=== PATIENT | male | born 1955 | race Caucasian/White ===

== ENCOUNTER 2024-01-23 11:56 | Emergency (ER) | payer MEDICARE, SELFPAY ==
[2024-01-23 12:16] VITALS: BP 141/97
[2024-01-23] MEDS: TORADOL 60 MG IM (13:46)
--- NOTE | 2024-01-23 16:07 | ED.GENMED ---
History of Present Illness
General
Chief Complaint: Musculo-Skeletal Complaint
Source: patient
Exam Limitations: none
Time Seen by Provider: 01/23/24 13:25
Travel History
Have you had any contact with someone who has COVID-19?: No
Do you have any symptoms of coronavirus? Fever > 100 degrees, chills, cough, shortness of breath, sore throat, loss of taste or smell, muscle aches, or headache?: No
History of Present Illness
History of Present Illness:
68-year-old male nontraumatic right upper thigh pain for days. No weakness. No warmth no fever no abdominal pain. Symptoms are mild but ongoing in nature. Slightly worse with weightbearing.
Past History
Past History
ED Past Medical History: Cancer (Bladder), COPD, Seizures and Other (History of diverticulitis, polyps, hydronephrosis due to bladder cancer impaired vision); Negative IDDM or NIDDM
ED Past Surgical History: Orthopedic (Right foot repair) and Other (Bladder removal with urostomy 14 years ago); Negative Appendectomy
Social History
Tobacco: Former smoker
Alcohol: None
Drug: None
Personal:
Living: with family
Employment: Other
Family History
Family History: Hypertension
Review of Systems
Review of Systems
All Other Systems: Not applicable
Constitutional: Denies fever
Phy Exam
Physical Exam
Physical Exam:
GENERAL: Alert and oriented in no apparent distress
CARDIAC: Regular rate and rhythm
LUNGS: No respiratory distress
ABDOMEN: Soft, without focal tenderness or distention urostomy
NEUROLOGICAL: Alert and oriented , grossly non-focal
SKIN: Warm and dry, chronic rash to the lower extremities and arms. There is a scabbing like rash over the area that is sore however patient states this is chronic. No unusual drainage or erythema
MUSCULOSKELETAL: No edema,no deformity.Good color. Mild tenderness over the right upper anterior thigh but without warmth erythema fluctuance. Able to bear full weight. No joint pain. No pain with joint motion
PSYCH: Normal and appropriate interaction.
Course
Orders/Labs/Results
Orders:
Orders
01/23/24 13:38
Femur, Right 2 View [CR Femur - Right Min 2 Vw] Urgent
Comment:
Reason For Exam: nontraumatic pain
US Periph Venous LOWER Ext RT Urgent
Comment:
Reason For Exam: thigh pain
01/23/24 13:39
Ketorolac [Toradol] 60 mg IM NOW STA
Vital Signs
Initial and Last Documented VS:
Initial Vital Signs
Temp Pulse Resp BP Pulse Ox
97.8 F 77 18 141/97 96
01/23/24 12:16 01/23/24 12:16 01/23/24 12:16 01/23/24 12:16 01/23/24 12:16
Last Documented Vital Signs
Temp Pulse Resp BP Pulse Ox
97.8 F 77 18 141/97 96
01/23/24 12:16 01/23/24 12:16 01/23/24 12:16 01/23/24 12:16 01/23/24 12:16
*Radiology
Radiology exam reviewed: preliminary read by ED provider (Negative x-ray) and radiology read reviewed (Negative ultrasound)
*Pulse Oximetry
Patient hypoxic: no
*Critical Care Note
Total Time (30-74mins, 75-104mins- exclusive of procedures): Not Applicable
Update Note
Update Note:
Patient is remained medically stable and nontoxic. No serious etiology found for this thigh pain. Neurologically stable. No infectious issue. Patient did state he is normally on it oxycodone but his 60 mg bottle fell out of his truck. At this
time I Tylenol. We could try a muscle relaxer. And follow-up.
ED Attending Note
-
Portions of this chart may have been created with voice recognition software.� Occasional wrong word or��sound alike� substitutions may have occurred due to the inherent limitations of voice recognition software.
Discharge Plan
Departure
Patient Disposition: Home (Routine Discharge)
Date of Disposition: 01/23/24
Time of Disposition: 16:41
Patient with high blood pressure during this ER visit?: Yes
Discharge Problem:
Right thigh pain
Instructions: Muscle and Bone Pain (DC), BLOOD PRESSURE
Prescriptions:
New
cyclobenzaprine 10 mg tablet
10 mg PO TIDPRN PRN (Reason: muscle spasm) Qty: 13 0RF
No Action
oxycodone [OxyContin] 10 MG tablet,oral only,ext.rel.12 hr
10 mg PO Q12H
oxycodone 5 MG tablet
10 mg PO Q8HPRN PRN (Reason: PAIN)
levofloxacin 500 MG tablet
500 mg PO DAILY Qty: 7 0RF
erythromycin 1 APPLIC ointment
1 applic ophthalmic (eye) QID Qty: 3 0RF
Referrals:
Levi Ross MD [Family Provider] - Follow up in 2-3 days
Activity Restrictions/Additional Instructions:
Advil or Motrin for pain
You could try the muscle relaxer also. However this could cause some drowsiness
Close follow-up with your primary physician
Return sooner with increased pain swelling redness fever numbness tingling weakness or any other concerning symptoms
Interventions
Interventions:
*Risk Screen - Suicide Last Done: 01/23/24 13:26
*General Assessment Last Done: 01/23/24 13:26
*Neglect/Abuse Screening Last Done: 01/23/24 13:26
ED- Fall Risk Assessment Last Done: 01/23/24 13:26
*ED COVID-19 Vaccine History Last Done: 01/23/24 12:16
ED-Musculoskeletal Assessment Last Done: 01/23/24 13:46
Discharge Date and Time
Print Language: GREEK
[2024-01-23 16:49] VITALS: BP 174/92
== END 2024-01-23 16:49 | disposition home or self-care (01) ==
LOC: EMR 11:56
PROVIDERS: EMERGENCY PHYSICIAN Emergency Medicine; FAMILY PHYSICIAN Internal Medicine
DX: M79.651 Pain in right thigh (principal); J44.9 Chronic obstructive pulmonary disease, unspecified; G40.909 Epilepsy, unspecified, not intractable, without status epilepticus; Z82.49 Family history of ischemic heart disease and other diseases of the circulatory system; Z85.51 Personal history of malignant neoplasm of bladder; Z87.891 Personal history of nicotine dependence; Z90.49 Acquired absence of other specified parts of digestive tract
CPT/HCPCS: 99284; 96372; 73552; 93971

== ENCOUNTER 2024-09-08 08:48 | Emergency (ER) | payer OTHER, SELFPAY ==
[2024-09-08 09:06] VITALS: BP 110/83
--- NOTE | 2024-09-08 10:28 | ED.GENMED ---
History of Present Illness
General
Chief Complaint: Cold/Flu/URI Symptoms
Source: patient
Time Seen by Provider: 09/08/24 10:16
History of Present Illness
History of Present Illness:
69-year-old male presents to the emergency room complaining of cough, body aches and feeling short of breath. Patient states he does have a history of COPD but does not use any inhalers. Symptoms began yesterday. No known fever. Patient denies
smoking though he did smoke heavily until 24 years ago. He does admit to drinking on a regular basis. No nausea vomiting or diarrhea.
Past History
Past History
ED Past Medical History: Cancer (Bladder), COPD, Seizures and Other (History of diverticulitis, polyps, hydronephrosis due to bladder cancer impaired vision); Negative IDDM or NIDDM
ED Past Surgical History: Orthopedic (Right foot repair) and Other (Bladder removal with urostomy 14 years ago); Negative Appendectomy
Social History
Tobacco: Former smoker
Alcohol: None
Drug: None
Personal:
Living: with family
Employment: Other
Family History
Family History: Hypertension
Phy Exam
Physical Exam
Physical Exam:
General: Awake, Alert, Oriented X3. No acute distress.
Vitals: unremarkable
Head: Atraumatic
Eyes: Pupils equal, EOMI
Throat: Airway intact, no exudates
Neck: Trachea midline
Lungs: Decreased breath sounds bilateral with a few expiratory wheezes
Heart: Regular rate, no murmurs
Abd: Soft, Nontender, No pulsatile mass
Neuro: Nonfocal
Skin: Warm, dry, no rash
Extremities: pulses equal b/l, no edema
Course
Orders/Labs/Results
Orders:
Orders
09/08/24 09:08
Electrocardiogram (*1) Urgent
Reason for Study: Shortness of Breath
CXR2 [CR Chest - 2 Views ] Urgent
Comment:
Reason For Exam: cough uri s/s
09/08/24 09:09
EKG- Treatment ONCE
09/08/24 10:28
Ipratropium/Albuterol Sulfate [Duoneb] 3 ml INH R NOW STA
09/08/24 11:08
COVID-19 Antigen Urgent
Source: Nasal Swab
Complete Blood Count/With Diff Urgent
Comprehensive Metabolic Panel Urgent
Troponin I Urgent
Influenza A+B Rapid Molecular Urgent
MARGARITA Source: Nasal Swab
Specimen Description:
Abnormal Lab Results
09/08/24
11:08
WBC 3.3 L 10^3/uL
(4.8-10.8)
MCH 31.2 H pg
(27.0-31.0)
Absolute Lymphs (auto) 0.3 L 10^3/uL
(1.2-3.4)
Lymphocytes % 9.3 L %
(20.5-51.1)
Monocytes % 16.6 H %
(1.7-9.3)
Creatinine 1.4 H mg/dL
(0.7-1.3)
Glucose 102 H mg/dl
(70-99)
09/08/24 11:08
09/08/24 11:08
Vital Signs
Initial and Last Documented VS:
Initial Vital Signs
Temp Pulse Resp BP Pulse Ox
99.0 F 88 16 110/83 94
09/08/24 09:06 09/08/24 09:06 09/08/24 09:06 09/08/24 09:06 09/08/24 09:06
Last Documented Vital Signs
Temp Pulse Resp BP Pulse Ox
99.0 F 84 15 124/68 94
09/08/24 09:06 09/08/24 12:15 09/08/24 12:15 09/08/24 12:00 09/08/24 12:15
MDM/Problems Addressed
Differential Diagnosis Includes:
covid, flu, pneumonia
MDM/Problems Addressed:
Patient positive for flu. I do not appreciate any significant murmurs on chest x-ray. Radiology questions and area in the right lower lobe which could be scarring or pneumonia. Given his positive flu test and only recent onset of symptoms I do
not believe he requires any antibiotics. Even if he does have an infiltrate is likely viral pneumonia. Patient will be discharged and advised to take Tylenol for fever chills etc.
*Radiology
Radiology exam reviewed: preliminary read by ED provider (Appears to be linear atelectasis right lower lung)
*Pulse Oximetry
Patient hypoxic: no
*Critical Care Note
Total Time (30-74mins, 75-104mins- exclusive of procedures): Not Applicable
ED Attending Note
-
Portions of this chart may have been created with voice recognition software.� Occasional wrong word or��sound alike� substitutions may have occurred due to the inherent limitations of voice recognition software.
Discharge Plan
Departure
Patient Disposition: Home (Routine Discharge)
Date of Disposition: 09/08/24
Time of Disposition: 12:14
Patient with high blood pressure during this ER visit?: No
Condition: Good
Discharge Problem:
Influenza A
Instructions: Flu in adults - Discharge instructions
Prescriptions:
New
albuterol sulfate 90 mcg/actuation HFA aerosol inhaler
2 puff inhalation Q4H PRN (Reason: shortness of breath or wheezing) Qty: 8.5 0RF
No Action
oxycodone [OxyContin] 10 MG tablet,oral only,ext.rel.12 hr
10 mg PO Q12H
oxycodone 5 MG tablet
10 mg PO Q8HPRN PRN (Reason: PAIN)
levofloxacin 500 MG tablet
500 mg PO DAILY Qty: 7 0RF
erythromycin 1 APPLIC ointment
1 applic ophthalmic (eye) QID Qty: 3 0RF
cyclobenzaprine 10 mg tablet
10 mg PO TIDPRN PRN (Reason: muscle spasm) Qty: 13 0RF
Referrals:
Levi Ross MD [Family Provider] -
Interventions
Interventions:
*Risk Screen - Suicide Last Done: 09/08/24 09:06
*General Assessment Last Done: 09/08/24 11:35
*Neglect/Abuse Screening Last Done: 09/08/24 09:06
ED- Fall Risk Assessment Last Done: 09/08/24 11:26
*ED COVID-19 Vaccine History Last Done: 09/08/24 11:26
*Nursing Disposition Last Done: 09/08/24 11:35
ED- Pulmonary Assessment Last Done: 09/08/24 11:26
Discharge Date and Time
Discharge Date/Time: 09/08/24 12:38
Print Language: IRISH
[2024-09-08 11:24] LABS: % Basophils 0.9 % (0-2); % Immature Granulocytes 0.3 % (0-0.5); % Lymphocytes 9.3 % (20.5-51.1); % Monocytes 16.6 % (1.7-9.3); % Neutrophils 72.9 % (42.2-75.2); Absolute Lymphocytes 0.3 10^3/uL (1.2-3.4); Absolute Monocytes 0.6 10^3/uL (0.1-0.6); Absolute Neutrophils 2.4 10^3/uL (1.4-6.5); Hematocrit 46.1 % (39.0-52.0); Hemoglobin 15.7 g/dL (13.0-18.0); Mean Corp Hgb Conc. 34.1 g/dL (33.0-37.0); Mean Corpuscular Hgb 31.2 pg (27.0-31.0); Mean Corpuscular Volume 91.7 fL (80.0-94.0); Mean Platelet Volume 10.4 fL (7.4-10.4); Nucleated Red Blood Cells % 0 % (-); Platelet Count 154 10^3/uL (130-400); Red Blood Cell Count 5.03 10^6/uL (4.70-6.10); Red Cell Dist. Width 13.2 % (11.5-14.5); White Blood Cell Count 3.3 10^3/uL (4.8-10.8)
[2024-09-08 11:26] VITALS: BMI 29.3
[2024-09-08 11:27] VITALS: BP 129/80
[2024-09-08] MEDS: DUONEB 3 ML INH (11:28)
[2024-09-08 11:39] LABS: COVID-19 Antigen Negative (Negative)
[2024-09-08 11:45] LABS: ALT (SGPT) 19 U/L (0-50); AST (SGOT) 24 U/L (17-59); Alkaline Phosphatase 93 U/L (38-126); Blood Urea Nitrogen 14 mg/dl (9-20); Calcium 8.4 mg/dl (8.4-10.2); Carbon Dioxide 25 mmol/L (22-30); Chloride 102 mmol/L (98-107); Estimated Creatinine Clearance 55 ml/min; Glucose 102 mg/dl (70-99); Potassium 4.5 mmol/L (3.5-5.1); Sodium 137 mmol/L (135-145); Total Bilirubin 0.8 mg/dl (0.2-1.3); Total Protein 7.3 g/dl (6.3-8.2); eGFR 54.75
[2024-09-08 11:54] LABS: Troponin I < 0.012 ng/ml
[2024-09-08 12:00] VITALS: BP 124/68
== END 2024-09-08 12:38 | disposition home or self-care (01) ==
LOC: EMR 08:48
PROVIDERS: Emergency Medicine; EMERGENCY PHYSICIAN Emergency Medicine; FAMILY PHYSICIAN Internal Medicine
DX: J10.1 Influenza due to other identified influenza virus with other respiratory manifestations (principal); J44.9 Chronic obstructive pulmonary disease, unspecified; Z82.49 Family history of ischemic heart disease and other diseases of the circulatory system; Z85.51 Personal history of malignant neoplasm of bladder; Z87.891 Personal history of nicotine dependence; Z90.49 Acquired absence of other specified parts of digestive tract
CPT/HCPCS: 99283; 94640; 71046; 80053; 84484; 85025; 87502; 87811; 93005

== ENCOUNTER 2025-07-11 03:53 | Inpatient (IN) | payer OTHER, SELFPAY ==
[2025-07-10 23:17] VITALS: BMI 26.9
[2025-07-10 23:18] VITALS: BP 158/95
[2025-07-10 23:41] LABS: Hematocrit 47.0 % (39.0-52.0); Hemoglobin 16.0 g/dL (13.0-18.0); Mean Corp Hgb Conc. 34.0 g/dL (33.0-37.0); Mean Corpuscular Volume 90.6 fL (80.0-94.0); Nucleated Red Blood Cells % 0 % (-); Platelet Count 197 10^3/uL (130-400); Red Cell Dist. Width 13.1 % (11.5-14.5)
[2025-07-11] VITALS (12 sets, daily range): BP systolic 107–140; BP diastolic 70–92; BMI 25.0
[2025-07-11 00:10] LABS: ALT (SGPT) 23 U/L (0-50); AST (SGOT) 20 U/L (17-59); Albumin 3.7 g/dl (3.5-5.0); Alkaline Phosphatase 101 U/L (38-126); Blood Urea Nitrogen 10 mg/dl (9-20); Calcium 8.6 mg/dl (8.4-10.2); Carbon Dioxide 24 mmol/L (22-30); Chloride 107 mmol/L (98-107); Estimated Creatinine Clearance 71 ml/min; Glucose 116 mg/dl (70-99); Lipase 147 U/L (23-300); Potassium 4.2 mmol/L (3.5-5.1); Sodium 136 mmol/L (135-145); Total Protein 7.4 g/dl (6.3-8.2); eGFR > 60.00
--- NOTE | 2025-07-11 00:31 | ED.GENMED ---
History of Present Illness
General
Chief Complaint: Abdominal Pain
Source: patient, ambulance crew and previous radiology exam (Prior CT abdomen pelvis 2018 showing urostomy right lower quadrant, chronic right-sided hydronephrosis/right hydroureter.)
Exam Limitations: none
Time Seen by Provider: 07/10/25 23:54
Nursing documentation reviewed up to this point in time: agreed with
History of Present Illness
History of Present Illness:
HISTORY OF PRESENT ILLNESS
The patient is a 69-year-old male presenting with right-sided flank pain. The pain began approximately two weeks ago, initially resolved overnight, but recurred with increased severity today around 10 PM. The patient recounts living in his car for
the past two weeks after vacating a rented room due to the previous resident�s ex-spouses planned return from [place]. He attributes part of his discomfort to sleeping conditions and a previous cough accompanied by phlegm, for which he completed a
course of azithromycin (Z-Eliecer) about three weeks ago, with subsequent resolution of the cough. The current pain is severe, radiates to the right anterolateral distal chest region and worsens with coughing and deep breaths but is not exacerbated by
palpation of the abdomen. He denies nausea and reports normal urinary function of his urostomy. The patient maintained on oxy IR 10 mg QID for chronic back pain management. Additionally, he has a history of bladder cancer requiring a urostomy 2001,
as well as history of chronic right hydronephrosis and hydroureter.
He denies leg pain or swelling. No prior history of thromboembolism.
He does have a history of COPD, maintained on LABA/ICS as well as as needed albuterol. Remote history of smoking, quit in 2001.
He arrives via EMS. Received IV fentanyl 90 mcg prehospital with moderate improvement in pain.
Past History
Past History
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
polyps, right hydronephrosis due to bladder cancer, impaired vision); Negative IDDM or NIDDM
ED Past Surgical History: Orthopedic (Right foot repair), Urological and Other (Bladder removal with urostomy 2001); Negative Appendectomy
Social History
Tobacco: Former smoker (Quit smoking 2001)
Alcohol: None
Drug: None
Personal:
Living: homeless (Had been renting a room in a house but recently forced to vacate. He is currently homeless since June 2025)
Employment: Other
Family History
Family History: Hypertension and Other (Chronic dry skin condition he inherited from his mother-Diareze disease)
Phy Exam
Physical Exam
Physical Exam:
GENERAL: 69-year-old gentleman appears his stated age. Awake and alert, pleasant, appears mildly uncomfortable, intermittently wincing in pain but otherwise easily communicative and in no acute distress. Mild to moderate hypoxia noted requiring
supplemental oxygen.
EYE: pupils equal and reactive. anicteric
NECK: Supple, nontender, no meningismus, no significant adenopathy.
ENT: oral mucosa is moist. No rhinorrhea.
CARDIAC: Regular rate and rhythm. no murmur.
LUNGS: no acute respiratory distress, moderately decreased breath sounds at bases related to poor inspiratory effort, splinting and pain with attempted deep breath. No palpable chest wall tenderness.
ABDOMEN: Soft, nondistended, without focal tenderness, no r/g, mild right CVA tenderness to percussion, normoactive BS.
NEUROLOGICAL: Alert and oriented x3, no focal neuro deficits.
SKIN: Warm and dry, normal color, generalized thickened, scaly mildly excoriated rash.
MUSCULOSKELETAL: No C/C/E. peripheral pulses are full and equal b/l. No palpable tenderness.
PSYCH: Normal and appropriate interaction.
Course
Orders/Labs/Results
Orders:
Orders
07/10/25 23:32
Complete Blood Count/With Diff Urgent
Comprehensive Metabolic Panel Urgent
Lipase Urgent
Urinalysis Reflex To Culture Urgent
Date Specimen was Collected: 07/10/25
Time Specimen was Collected: 23:30
Urine Microscopic Reflex Cult Urgent
Urine Culture Urgent
MARGARITA Source: U
Specimen Description:
Date Specimen was Collected: 07/10/25
Time Specimen was Collected: 23:30
07/11/25 00:29
Electrocardiogram (*1) Urgent
Reason for Study: Chest Pain
CT Pe/abd/pel W Urgent
Comment: wrong exam ordered changed to combined
Reason For Exam: Acute, severe R-LAT pleuritic CP
EKG- Treatment ONCE
07/11/25 00:47
Troponin I Urgent
07/11/25 01:45
Fentanyl Citrate/Pf [Sublimaze] 50 mcg IV NOW STA
07/11/25 02:06
PTT Urgent
07/11/25 02:09
Heparin 7,200 units IV NOW STA
Nursing to Place Non Medication Order As Directed
Physician Order: PTT 6 hours after initial start of Heparin infusion
07/11/25 02:15
Heparin 36505 Units/250 ml 25,000 units in 250 ml IV PER PROTOCOL
Weight to be used for heparin protocol in kilograms (kg):: 90
Protocol:: DVT/PE
PTT Goal Range to be used:: PTT 73 to 111 seconds
Order type:: Initial
INITIAL Infusion Dose (UNITS/KG/hr) & then follow protocol:: 18 units/kg/hr
Infusion Dose in UNITS/hr & then follow protocol (UNITS/hr):: 1,600
INFUSION RATE in mL/hr & then follow protocol (mL/hr):: 16
For DVT/PE algorithm, re-bolus for low PTT?: Yes
PTT less than or equal to 64 seconds:: Re-bolus 80 units/kg (max 10,000units). Increase by 400 units/hr
(+ 4mL/hr)
PTT 64.1 to 72.9 seconds:: Re-bolus 40 units/kg (max 5,000 units). Increase by 200 units/hr
(+ 2mL/hr)
PTT 73 to 111 seconds:: Target Range. No change in rate.
PTT 111.1 to 130.9 seconds:: Decrease rate by 200 units/hr (- 2 mL/hr)
PTT 131 to 199.9 seconds:: HOLD for 1 hr. Then decrease by 300 units/hr (- 3mL/hr)
PTT greater than or equal to 200 seconds:: HOLD for 2 hrs & Notify Provider. Then decrease by 400 units/hr
(- 4mL/hr)
Lab follow-up:: Each change, PTT q6h until 2 consecutive are therapeutic. Then
PTT daily.
07/11/25 02:18
Heparin 3,600 units IV PRN PRN
Heparin 7,200 units IV PRN PRN
Abnormal Lab Results
07/10/25
23:32
MPV 10.5 H fL
(7.4-10.4)
Absolute Neuts (auto) 6.9 H 10^3/uL
(1.4-6.5)
Absolute Lymphs (auto) 0.9 L 10^3/uL
(1.2-3.4)
Absolute Monos (auto) 0.7 H 10^3/uL
(0.1-0.6)
Neutrophils % 79.6 H %
(42.2-75.2)
Lymphocytes % 10.8 L %
(20.5-51.1)
Glucose 116 H mg/dl
(70-99)
Ur Occult Blood Reflex 1+ A
(Negative)
Urine Nitrite (Reflex) Positive A
(Negative)
Urine WBC (Reflex) 11-15 A /HPF
(0-5)
Urine Bacteria (Reflex) Many A
(Negative)
Urine Albumin (Reflex) 1+ A
(Neg - Trace)
07/10/25 23:32
07/10/25 23:32
Vital Signs
Initial and Last Documented VS:
Initial Vital Signs
Temp Pulse Resp BP Pulse Ox
97.9 F 106 20 158/95 91
07/10/25 23:18 07/10/25 23:18 07/10/25 23:18 07/10/25 23:18 07/10/25 23:18
Last Documented Vital Signs
Temp Pulse Resp BP Pulse Ox
97.9 F 86 15 125/83 94
07/10/25 23:18 07/11/25 01:45 07/11/25 01:45 07/11/25 01:00 07/11/25 01:45
MDM/Problems Addressed
Differential Diagnosis Includes:
DIFFERENTIAL DIAGNOSIS
The Differential Diagnosis includes, in no particular order and is not limited to:
1. Hydronephrosis
2. Kidney stones
3. Musculoskeletal pain
4. Pneumonia
5. Pleural effusion
6. Appendicitis
7. Gallbladder disease
8. Peptic ulcer
9. Costochondritis
10. Pancreatitis
11. PE
12. UTI/pyelonephritis
13. Recurrence of bladder cancer
MDM/Problems Addressed:
Acute right-sided flank/right lateral chest pain.
Pain clearly appears pleuritic in nature and more so right lateral lower chest and locality.
Abdomen is otherwise soft without appreciable tenderness.
Labs thus far unremarkable.
Will check EKG, troponin and plan for CT of the chest/PE study and due to prior history of bladder cancer, history of right hydronephrosis/right hydroureter will check CT abdomen and pelvis as well.
Will continue supplemental nasal cannula oxygen.
Chronic conditions affecting care:
Chronic pain syndrome�narcotic dependent
Chronic conditions affecting care: COPD and Cancer (Bladder cancer)
*Radiology
Radiology exam reviewed: radiology read reviewed
*Pulse Oximetry
SaO2: 94
Nasal Cannula flow liters per minute: 2
Patient hypoxic: yes
*EKG
Interpreted by ED Provider?: Yes
Interpretation: normal
Rate: normal
Rhythm: sinus
[place]: normal axis
Interval: normal interval
QRS Pattern: normal QRS
Ischemia: no ischemia
*[place] [place] Interpretation
Rate: normal
Interpretation: normal
Rhythm: sinus
*Critical Care Note
Total Time (30-74mins, 75-104mins- exclusive of procedures): 30
comment:
Critical care statement: A total of 30 minutes of critical care time was provided for this patient. This includes management of unstable vital signs, evaluation of the patient at bedside, reviewing the patient's pertinent medical records, discussion
with consultants, review of old EKGs and review of pertinent medical records. This time with separate from time utilized to perform the aforementioned documented procedures
Patient Management
Social determinants of health affecting care: Living situation (SOCIAL DETERMINANTS AFFECTING HEALTH The patient reports being homeless for the past two weeks and living in his truck after vacating his previous accommodations. He reports no
immediate family support in the area.)
Update Note
Update Note:
02:30
CT of the chest shows bilateral PEs more so on the right than left. Questionable minimal right heart strain.
Patient remains hemodynamically stable.
EKG is reassuring showing normal sinus rhythm, normal axis, normal intervals. No acute ST-T wave abnormalities. Also reassuring that troponin is normal.
IV heparin bolus and drip has been initiated.
Will plan to admit to hospitalist service.
ED Attending Note
-
Portions of this chart may have been created with voice recognition software.� Occasional wrong word or��sound alike� substitutions may have occurred due to the inherent limitations of voice recognition software.
Discharge Plan
Departure
Patient Disposition: Admit
Date of Disposition: 07/11/25
Time of Disposition: 02:36
Admit to doctor: Cyrus
Presentation/result/management discussed w/ accepting MD/DO: Hospitalist
Condition: Serious
Discharge Problem:
Acute pulmonary embolism, Acute hypoxemic respiratory failure
Prescriptions:
No Action
oxycodone [OxyContin] 10 MG tablet,oral only,ext.rel.12 hr
10 mg PO Q12H
oxycodone 5 MG tablet
10 mg PO Q8HPRN PRN (Reason: PAIN)
albuterol sulfate 90 mcg/actuation HFA aerosol inhaler
2 puff inhalation Q4H PRN (Reason: shortness of breath or wheezing) Qty: 8.5 0RF
Referrals:
Levi Ross MD [Family Provider, Internal Medicine]
Interventions
Interventions:
*Risk Screen - Suicide Last Done: 07/10/25 23:23
*General Assessment Last Done: 07/10/25 23:23
*Neglect/Abuse Screening Last Done: 07/10/25 23:23
*ED COVID-19 Vaccine History Last Done: 07/10/25 23:23
*ED Influenza Vaccine History Last Done: 07/10/25 23:23
[facility] Fall Risk Assessment Tool Last Done: 07/10/25 23:28
DH-Gbcdoe-Xnjaczvqsi Assessment Last Done: 07/10/25 23:26
Discharge Date and Time
Print Language: SLOVENIAN
[2025-07-11 01:07] LABS: Urine Character Slightly Cloudy (Clear)
[2025-07-11 01:27] LABS: Urine Red Blood Cell 0-2 /HPF (0-2)
[2025-07-11 01:31] LABS: Troponin I < 0.012 ng/ml
[2025-07-11] MEDS: SUBLIMAZE 50 MCG IV (01:59)
[2025-07-11] MEDS: HEPARIN 7200 UNITS IV (02:17)
[2025-07-11 02:25] LABS: APTT 30.8 Sec (23.4-35.0)
[2025-07-11] MEDS: HEPARIN 25000 UNITS/250 ML IV ×2 (02:29→17:48)
--- NOTE | 2025-07-11 03:49 | HPS.HSE ---
Family Physician
-
Family Physician: Levi Ross MD
Chief Complaint
-
Chest Pain
History of Present Illness
Patient is a 69y M with PMH significant for bladder cancer s/p cystectomy who presents to ED complaining of chest pain. Patient states that he has been homeless / living in his vehicle for about a month or so. He denies any recent injury,
trauma, long travel, surgeries, etc. No personal or family history of VTE. This evening around 8PM he developed sharp, sudden and severe pain in the R lower chest. This was accompanied by increased SOB. He called 911 and was brought to the ED
for further evaluation. Work-up in the ED reveals bilateral pulmonary emboli with evidence of RLL pulmonary infarct.
Medical History
Past Medical History
Past Medical History: Reports Other
Additional Past Medical History:
COPD
Bladder Cancer
Past Surgical History: Reports Other
Additional Past Surgical History:
T&A
Radical Prostatectomy and Cystectomy
Ileal Conduit Formation
Social History
Tobacco: Former Smoker (Quit smoking about 25y ago.)
Alcohol: Daily (1-2 drinks daily.)
Drug: Marijuana (Occasional marijuana)
Living: Homeless
Family History
Family History: Other (Mother: Darier's disease)
Allergies / Home Medications
Allergies reflects when Allergies were last updated in [facility].
Home Medications with original date entered in [facility]
Allergy/Medication List:
Allergies
Allergy/AdvReac Type Severity Reaction Status Date / Time
acetaminophen AdvReac Mild headache Verified 09/08/24 09:08
Home Medications
oxycodone 10 mg tablet,crush resistant,extended release 12 hr (OxyContin) 10 mg PO Q12H BACK PAIN 04/15/16
oxycodone 5 mg tablet 10 mg PO Q8HPRN PRN PAIN 04/15/16
albuterol sulfate 90 mcg/actuation aerosol inhaler 2 puff inhalation Q4H PRN shortness of breath or wheezing #8.5 grams 09/08/24
Review of Systems
-
History Source: Patient
A 12 point ROS was completed and negative except as noted: Yes
Constitutional: Reports Fatigue; Denies Fever or Chills
EENT: Denies Sore Throat
Respiratory: Reports Trouble Breathing; Denies Cough or Hemoptysis
Cardiac: Reports Chest Pain; Denies Diaphoresis or Palpitations
Abdomen/GI: Denies Abdominal Pain, Nausea, Vomiting or Diarrhea
: Reports Other (Ileal conduit.); Denies Dysuria, Frequency or Flank Pain
Musculoskeletal: Denies Joint Pain, Muscle Pain or Edema
Skin: Reports Itching and Rash
Neurological: Denies Dizzy or Headache
Psych: Denies Depression or Anxiety
Physical Exam
Vital Signs
Vital Signs
Temp Pulse Resp BP Pulse Ox
97.9 F 82 14 116/75 94
07/10/25 23:18 07/11/25 03:15 07/11/25 03:15 07/11/25 03:00 07/11/25 03:15
Physical Exam
General: Other (69y M in mild distress due to pain.)
HEENT: Other (Dry MM. Poor dentition.)
Respiratory: Clear and Other (Pain with deep inspiration.); No Wheezes, Rales or Rhonchi
Cardiac: S1/S2 and Regular Rhythm; No Murmur
GI: Soft, Non Tender, Non Distended, Normal Bowel Sounds and Other (RLQ ileal conduit with light yellow urine in device.)
Musculoskeletal: No Clubbing, No Edema and Other (No calf tenderness or cords.)
Skin: Other (Maculopapular rash across trunk with scattered crusted lesions)
Neuro: AO x 3
Laboratory Results
-
07/10/25 23:32
07/10/25 23:32
Laboratory Results
APTT 30.8 Sec (23.4-35.0) 07/11/25 02:06
Total Bilirubin 1.2 mg/dl (0.2-1.3) 07/10/25 23:32
AST 20 U/L (17-59) 07/10/25 23:32
ALT 23 U/L (0-50) 07/10/25 23:32
Alkaline Phosphatase 101 U/L (38-126) 07/10/25 23:32
Troponin I < 0.012 ng/ml 07/11/25 00:47
Lipase 147 U/L (23-300) 07/10/25 23:32
Impression/Plan
-
A/P: Patient is a 69y M with PMH significant for COPD and bladder cancer who presents to ED complaining of chest pain.
Bilateral Pulmonary Emboli
RLL Pulmonary Infarct
Acute Hypoxemic Respiratory Insufficiency secondary to the above
- Admit for further evaluation and treatment.
- CTA in the ED shows proximal R main pulmonary artery embolus and more distal LLL emboli. Evidence of infarct of RLL.
- Imaging findings c/w RV dysfunction, but maintaining BP and oxygenation is adequate on supplemental O2.
- Continue IV heparin infusion.
- Check Echo, LE dopplers, etc in AM.
- Pulmonary evaluation for additional recommendations.
- Etiology / trigger is unclear at present.
- Transition to OAC prior to discharge - ? lifelong treatment.
COPD without Acute Exacerbation
- No wheezing on exam. No recent cough, etc.
- Albuterol PRN.
- Follow fro any changes.
Bladder Cancer
Ileal Conduit Status
- Stable. Routine ostomy care.
Rash
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
- Also states it only started within the past few years?
- Using OTC steroid creams primarily.
- ? more folliculitis, etc - especially given current living conditions, etc.
- Monitor for changes.
- Would likely benefit from formal Derm eval as an outpatient.
DVT Prophylaxis: On IV Heparin
Code Status: Full
[2025-07-11] MEDS: DILAUDID 0.5 MG IV (04:28)
[2025-07-11] MEDS: LR 1000 IV ×2 (05:16→17:53)
[2025-07-11] MEDS: ROXICODONE 10 MG PO ×2 (08:25→20:35)
[2025-07-11 08:59] LABS: Hematocrit 47.7 % (39.0-52.0); Hemoglobin 16.0 g/dL (13.0-18.0); Mean Corp Hgb Conc. 33.5 g/dL (33.0-37.0); Mean Corpuscular Volume 92.6 fL (80.0-94.0); Platelet Count 186 10^3/uL (130-400); Red Cell Dist. Width 13.2 % (11.5-14.5)
[2025-07-11 09:07] LABS: APTT 97.5 Sec (23.4-35.0)
[2025-07-11 09:50] LABS: Blood Urea Nitrogen 9 mg/dl (9-20); Calcium 8.8 mg/dl (8.4-10.2); Carbon Dioxide 29 mmol/L (22-30); Chloride 104 mmol/L (98-107); Estimated Creatinine Clearance 78 ml/min; Glucose 95 mg/dl (70-99); Potassium 4.7 mmol/L (3.5-5.1); Sodium 137 mmol/L (135-145); eGFR > 60.00
--- NOTE | 2025-07-11 11:41 | CM ---
Addendum entered by Tayla Carr 07/11/25 13:32:
Eliquis, covered under insurance, no out of pocket costs.
Original Note:
Patient seen bedside.
IA completed.
Patient is currently homeless x 2 weeks and living in his car.
Support person is his brother, but he only rents a room somewhere and is unable to take him in.
Patient is reaching out to a friend but is unsure if he can assist.
Shelters discussed with patient and information provided.
TC to the HUB and patient needs to call intake with the housing link to initiate services- [phone].
Per rep at the HUB the [facility] is open for immediate care home at [facility] at [address] [place], [place].
Patient does have health insurance and Eliquis is no out of pocket costs per [facility].
Patient is currently unemployed.
Patient has a urostomy which he care for himself.
Patient last seen by PCP 3 weeks ago.
Patient does receive Social Security.
Pharmacy: [facility]
PCP:Dr Levi Ross
Plan: d/c with care home information once medically stable.
--- NOTE | 2025-07-11 12:02 | WOUNDNOTE ---
SADE RN NOTE: Patient admitted with acute pulmonary embolism, hypoxia. PMH: Cystectomy for bladder Cancer with Urostomy 2001. Asked to see patient for leaking urostomy appliance, 2 day wear time. Currently patient is homeless, sleeping in truck and
has his ostomy supplies in truck, patient reports. Patient using [employer] 2 piece flat Urostomy appliances, sometimes gets 3 day wear time he reports. Supplies ordered from [facility] Earnestine 2 1/4' 2 piece flat wafer with stoma paste. Brought up
Earnestine one piece convex appliance that was applied today along with stoma paste. Stoma pink and budded, peristomal skin with cracked red raw appearing skin proximally. 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
around stoma to be bumpy, suspect also reason for leakage. Skin very itchy on legs and mid abdomen. Assessed patient this morning along with Dr. Rivero and approved of mineral oil to try on dry skin patches. Patient agreeable and notified nurse
Melanie. Additional convex ostomy supplies at bedside for patient to take upon discharge. Updated discharge instructions with Urostomy pouch information/instructions and codes of new pouches if wants to order next supply. Patient made aware and will
follow as needed.
--- NOTE | 2025-07-11 12:50 | W.PN.HOSP.TC ---
Today's Communication/Plan
-
Assessment / Plan
Assessment / Plan
General: No Apparent Distress, Comfortable and Conversant, disheveled
HEENT: NormoCephalic, Moist mucous membranes, Atraumatic
Respiratory: Clear bilaterally, right chest/flank TTP
Cardiac: S1/S2 and Regular Rhythm; No Rub or Gallop
GI: Soft, Non Tender, ileal conduit in place draining clear yellow urine
Musculoskeletal: Mild lower extremity edema, no deformity
Skin: Warm and dry, seborrheic papules scattered throughout body worst on legs
: NO Simmons
Neuro: Awake, Alert, Nonfocal/grossly intact
Psych: Calm and Intact Judgment/Insight
Mr. Shipman is a 69-year-old male with medical history of bladder cancer (status post cystectomy and ileal conduit) and COPD who presented with sharp right-sided chest pain worse with deep inspiration and shortness of breath. He has been homeless
and living in his vehicle for about a month. CT angiography in the emergency department showed bilateral pulmonary emboli with suspected right lower lobe pulmonary infarct. He was started on anticoagulation and admitted for further evaluation and
management.
Bilateral pulmonary emboli:
- With right lower lobe pulmonary infarct acute hypoxic respiratory failure
- Anticoagulating with IV heparin
- Lower extremity Dopplers show right lower extremity DVT
- Echocardiogram pending
- Continue supplemental oxygen as needed, currently only requiring 2 L via nasal cannula, will wean as able
- Co-pay for Eliquis, will plan to transition to anticoagulation with Eliquis tonight 07/11
- Appreciate input from case management
Back pain:
- Continue home oxycodone
Darier's disease:
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
- Continue moisturizing lotion or petroleum jelly
- Outpatient dermatology follow-up
COPD:
- Currently without exacerbation
- Albuterol as needed
DVT prophylaxis: IV heparin
CODE STATUS: Full code
Anticipated Discharge: 24 - 48 hours
Subjective/Interval History
-
Date of Service: July 11, 2025
Patient was seen and examined at bedside this morning. Continues to have right flank pain with deep inspiration. Continuing anticoagulation with IV heparin for pulmonary embolism and presumed right pulmonary infarct.
Objective Data
-
Labs:
Laboratory Results
07/11/25 07/11/25 07/11/25
02:06 08:28 14:30
WBC 7.6
Hgb 16.0
Hct 47.7
Plt Count 186
APTT 30.8 97.5 H Pending
Sodium 137
Potassium 4.7
Chloride 104
Carbon Dioxide 29
BUN 9
Creatinine 1.0
Glucose 95
Calcium 8.8
Vital Signs:
Vital Signs
Temp Pulse Resp BP Pulse Ox
97.6 F 70 16 129/76 96
07/11/25 11:15 07/11/25 11:15 07/11/25 11:15 07/11/25 11:15 07/11/25 11:15
I&O
07/10/25 07/11/25 07/12/25
06:59 06:59 06:59
Output Total 450 / 450
Balance -450 / -450
Review of Systems
-
History Source: Patient
All other systems: Reviewed and negative
Respiratory: Reports Pleurisy (Right chest/flank pain with deep inspiration)
Physical Exam
-
General: No Apparent Distress
[2025-07-11] MEDS: LIDOCAINE 4% PATCH 1 PATCH TOPICAL (13:22)
[2025-07-11] MEDS: HYDROPHOR 1 APPLIC TOPICAL (13:29)
--- NOTE | 2025-07-11 14:01 | CON.PUL ---
Consultation
Consultation Request
Date/Time Consultation Requested: 07/11/2025
Date/Time Consultation Performed: 07/11/2025
Requesting Provider: Dr. Rivero
Performing Provider: Dr. Jack Gutierrez
Reason for Consultation: Acute pulmonary embolism
Medical History
-
History of Present Illness:
69-year-old male with past medical history significant for bladder cancer status post cystectomy who presented to [facility] emergency room complaining of chest pain. Patient is homeless living in a vehicle for about a month. Denies any long
distance travel, denies recent injury or surgery.
Denies personal or family history of thromboembolic disease.
Pain started suddenly last night about [address] angiogram in the emergency room demonstrated bilateral pulmonary emboli with right lower lobe pulmonary infarct.
Pulmonary consulted 07/11/2025 for evaluation.
Past Medical History
Past Medical History: Other (See assessment and plan section)
Social History
Tobacco: Former Smoker (Quit 25 years ago)
Alcohol: Daily (1-2 drinks per day)
Drug: None
Living: Homeless
Family History
Family History: Reviewed & Not Pertinent
Allergies / Home Medications
Allergies
Allergy/AdvReac Type Severity Reaction Status Date / Time
acetaminophen AdvReac Mild headache Verified 09/08/24 09:08
Home Medications
�Medication �Instructions �Recorded �Confirmed �Last Taken �Type
oxycodone 10 mg tablet,crush 10 mg PO Q12H BACK PAIN 04/15/16 07/11/25 Unknown History
resistant,extended release 12 hr
(OxyContin)
oxycodone 5 mg tablet 10 mg PO Q8HPRN PRN PAIN 04/15/16 07/11/25 04/15/16 History
albuterol sulfate 90 mcg/actuation 2 puff inhalation Q4H PRN 09/08/24 07/11/25 Unknown Rx
aerosol inhaler shortness of breath or wheezing
#8.5 grams
apixaban 5 mg tablet (Eliquis) 5 mg PO BID #70 tabs 07/11/25 Unknown Rx
Review of Systems
-
History Source: Patient
All other systems: Negative unless noted
Vitals / Labs / Diagnostic Testing
Vital Signs
Temp Pulse Resp BP Pulse Ox
97.6 F 70 16 129/76 96
07/11/25 11:15 07/11/25 11:15 07/11/25 11:15 07/11/25 11:15 07/11/25 11:15
Lab Data
07/11/25 08:28
07/11/25 08:28
Laboratory Results
07/11/25 07/11/25
02:06 08:28
APTT 30.8 97.5 H
Diagnostic Testing:
Physical Exam
-
HEENT: Normocephalic
Cardiovascular: S1/S2
Respiratory: Non-Labored Respirations
GI: Non Distended
Neurology: Awake, AO x 3 and No Motor Deficits
Skin: Warm
General: Comfortable
Assessment
-
69-year-old man with history of? COPD, bladder cancer s/p resection, history of radical prostatectomy and cystectomy in the past, ileal conduit formation admitted with acute onset shortness of breath and chest pain. Found to have bilateral
pulmonary embolism. Patient is homeless and living in his vehicle for the last 2-3 weeks.
-
Acute bilateral pulmonary embolism-possibly ?provoked
Right lower extremity DVT. Nonocclusive thrombus within the proximal profundofemoral vein.
Occlusive thrombus within the anterior duplicated right peroneal vein.
Left lower extremity is clean
Right lower lobe airspace disease likely pulmonary infarct.
Pleuritic type chest pain
Conditions present prior admission:
Former smoker quit 25 years ago
Daily drinker
chronic back pain on opiate
Occasional marijuana use
History of bladder cancer status post radical prostatectomy and cystectomy with ileal conduit formation--2001
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
History of COPD- albuterol as needed/Trelegy - does not see pulmonary.
Assessment and plan:
Unclear whether this thromboembolic event is provoked-he certainly has been more sedentary, sleeping in his car he is homeless for the last 2-3 weeks.
He is bladder cancer surgery was in 2001-he states that he follows up with urology.
Denies family history
-
Agree with transition to oral anticoagulants.
Not tachycardic
Negative cardiac biomarkers
There is some signs of possible RV strain on CAT scan: Echocardiogram has been ordered.
On low rate supplemental oxygen wean off oxygen as able.
-
I did discuss with the patient pathophysiology of thromboembolic disease. Length of anticoagulation 3 to 6 months for provoked events.
Lifelong anticoagulation is an option for unprovoked events or unresolved DVT despite proper anticoagulation.
He will need follow-up in the pulmonary office
-
In regards to right lower lobe airspace abnormality-clinically likely a pulmonary infarct.
He will need radiographic follow-up in the next 3 months given history of smoking, rule out pulmonary nodule. Discussed with patient and he is agreeable.
-
Recommend age and sex appropriate cancer screening.
-
COPD: Not in acute exacerbation.
No PFT available
Recommend pulmonary follow-up- Information will be left on chart
Restart inhalers-he states that he usually on Trelegy.
-
Hopefully discharge planning in the next 24 hours if stable.
Data reviewed:
CT chest 07/11/2025:
Examination is positive for pulmonary embolism. There is a large embolus within the distal aspect of the right main pulmonary artery. Extension into the right upper lobe, right middle lobe, and right lower lobe segmental and subsegmental pulmonary
artery branches.
On the left, embolism is probably present within apical posterior segmental branches. Embolus is present within lingular branches and within the left lower lobe pulmonary artery and extending into the segmental and subsegmental branches.
There is a focal area of parenchymal opacity within the medial right lower lobe, greatest confluence inferiorly, and this likely represents pulmonary infarction.
Patchy parenchymal opacity within the posterior and inferior aspect of the left lower lobe, morphologic appearance most suggestive of atelectasis, although there could be a component of pulmonary infarction in this region as well.
[2025-07-11] MEDS: OXYCONTIN (CONTROLLED RELEASE) 10 MG PO (14:29)
[2025-07-11 14:59] LABS: APTT 125.8 Sec (23.4-35.0)
[2025-07-11] MEDS: SYMBICORT 160/4.5 MCG INHALER 2 PUFF INH (19:36)
[2025-07-11] MEDS: REMOVE LIDOCAINE PATCH 1 PATCH REMOVE (20:25)
[2025-07-11 21:53] LABS: APTT 104.0 Sec (23.4-35.0)
[2025-07-12] MEDS: OXYCONTIN (CONTROLLED RELEASE) 10 MG PO ×2 (00:09→12:33)
[2025-07-12] MEDS: LR 1000 IV (02:38)
[2025-07-12 03:34] VITALS: BP 129/73
[2025-07-12 04:57] LABS: APTT 82.4 Sec (23.4-35.0)
[2025-07-12 06:00] VITALS: BMI 25.6
[2025-07-12 07:30] VITALS: BP 125/78
[2025-07-12] MEDS: SPIRIVA RESPIMAT 2.5 MCG 2 PUFF INH (08:19)
[2025-07-12] MEDS: SYMBICORT 160/4.5 MCG INHALER 2 PUFF INH (08:19)
[2025-07-12] MEDS: HYDROPHOR 1 APPLIC TOPICAL (08:46)
[2025-07-12] MEDS: ELIQUIS 10 MG PO (08:48)
[2025-07-12] MEDS: LIDOCAINE 4% PATCH TOPICAL (08:48)
[2025-07-12] MEDS: FLUSH (NSS) 1 FLUSH IV (08:49)
[2025-07-12 11:15] VITALS: BP 121/77
--- NOTE | 2025-07-12 11:24 | W.PN.PUL3 ---
Today's Communication / Plan
-
Wean off oxygen
Continue oral anticoagulation
Analgesia
Incentive spirometry
Continue inhalers-to restart Trelegy upon discharge
Recommend outpatient pulmonary [id number] clearance should be documented for right lower lobe abnormality which likely is a pulmonary infarct
No additional recommendation
Hopefully discharge planning soon
Sign off
Assessment
-
69-year-old man with history of? COPD, bladder cancer s/p resection, history of radical prostatectomy and cystectomy in the past, ileal conduit formation admitted with acute onset shortness of breath and chest pain. Found to have bilateral
pulmonary embolism. Patient is homeless and living in his vehicle for the last 2-3 weeks.
-
Acute bilateral pulmonary embolism-possibly ?provoked
Right lower extremity DVT. Nonocclusive thrombus within the proximal profundofemoral vein.
Occlusive thrombus within the anterior duplicated right peroneal vein.
Left lower extremity is clean
Right lower lobe airspace disease likely pulmonary infarct.
Pleuritic type chest pain
Conditions present prior admission:
Former smoker quit 25 years ago
Daily drinker
chronic back pain on opiate
Occasional marijuana use
History of bladder cancer status post radical prostatectomy and cystectomy with ileal conduit formation--2001
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
History of COPD- albuterol as needed/Trelegy - does not see pulmonary.
Assessment and plan:
Unclear whether this thromboembolic event is provoked-he certainly has been more sedentary, sleeping in his car he is homeless for the last 2-3 weeks.
He is bladder cancer surgery was in 2001-he states that he follows up with urology.
Denies family history
-
Continue Eliquis-can decide in the outpatient setting length of anticoagulation likely 3 to 6 months
Not tachycardic
Negative cardiac biomarkers
There is some signs of possible RV strain on CAT scan: Echocardiogram showed normal RV function. No significant abnormalities.
Wean off oxygen.
-
In regards to right lower lobe airspace abnormality-clinically likely a pulmonary infarct.
He will need radiographic follow-up in the next 3 months given history of smoking, rule out pulmonary nodule.
Discussed with patient and he is agreeable.
-
Continue with analgesia for pleuritic type chest pain.
-
Recommend age and sex appropriate cancer screening-if not done recently.
-
COPD: Not in acute exacerbation.
No PFT available
Recommend pulmonary follow-up- Information will be left on chart
Restart inhalers-he states that he usually on Trelegy.
-
Data reviewed:
CT chest 07/11/2025:
Examination is positive for pulmonary embolism. There is a large embolus within the distal aspect of the right main pulmonary artery. Extension into the right upper lobe, right middle lobe, and right lower lobe segmental and subsegmental pulmonary
artery branches.
On the left, embolism is probably present within apical posterior segmental branches. Embolus is present within lingular branches and within the left lower lobe pulmonary artery and extending into the segmental and subsegmental branches.
There is a focal area of parenchymal opacity within the medial right lower lobe, greatest confluence inferiorly, and this likely represents pulmonary infarction.
Patchy parenchymal opacity within the posterior and inferior aspect of the left lower lobe, morphologic appearance most suggestive of atelectasis, although there could be a component of pulmonary infarction in this region as well.
Subjective Data
-
Date of Service:
Date of Service: July 12, 2025
Chief Complaint: Pulmonary Follow Up (Pulmonary embolism/DVT)
Subjective:
Denies any particular new symptoms
Hemodynamically stable overnight
Started on oral anticoagulation
Review of Systems
General: Fever (n)
Cardiopulmonary: Dyspnea (Chronic)
GI: Abdominal Pain (n) and Nausea (n)
Objective Data
Data Reviewed
Vital Signs / I&O / Oxygen:
Vital Signs
Temp Pulse Resp BP Pulse Ox
97.7 F 84 18 121/77 96
07/12/25 11:15 07/12/25 11:15 07/12/25 11:15 07/12/25 11:15 07/12/25 11:15
Intake and Output
07/11/25 07/12/25 07/13/25
06:59 06:59 06:59
Intake Total 1647 / 1647
Output Total 450 / 450 1500 / 1500
Balance -450 / -450 147 / 147
SaO2 96
Nasal Cannula flow liters per 2
minute
Physical Exam
General: Comfortable
HEENT: Normocephalic
Cardiovascular: S1-S2
Respiratory: Clear and Non-Labored Respirations
GI: Soft
Neurology: Awake, Alert, AO x 3 and No Motor Deficits
Labs/Micro/Reports
Lab Data
07/11/25 08:28
07/11/25 08:28
Laboratory Results
07/11/25 07/11/25 07/12/25
14:34 21:33 04:27
APTT 125.8 H 104.0 H 82.4 H
--- NOTE | 2025-07-12 11:54 | W.DCSUMMARY ---
Discharge Summary
Discharge Data
Date of Admission: 07/11/25
Date of Discharge: 07/12/25
Total time spent discharging patient (in min): 44
-
Pending Results: No
Hospital Course
Mr. Shipman is a 69-year-old male with medical history of bladder cancer (status post cystectomy and ileal conduit) and COPD who presented with sharp right-sided chest pain worse with deep inspiration and shortness of breath. He has been homeless
and living in his vehicle for about a month. CT angiography in the emergency department showed bilateral pulmonary emboli with suspected right lower lobe pulmonary infarct. He was started on anticoagulation with IV heparin and admitted for further
evaluation and management.
Lower extremity Doppler showed a DVT in his right leg. Echocardiogram showed no evidence of right heart strain. He was able to be transitioned to anticoagulation with Eliquis, starting with a loading dose for the first 7 days. He will then
continue regular dose of 5 mg twice daily thereafter for at least 6 months. He has planned follow-up with pulmonology. He will be continued on his home inhalers for COPD. He was medically stable at time of discharge.
General: No Apparent Distress, Comfortable and Conversant, disheveled
HEENT: NormoCephalic, Moist mucous membranes, Atraumatic
Respiratory: Clear bilaterally, right chest/flank TTP
Cardiac: S1/S2 and Regular Rhythm; No Rub or Gallop
GI: Soft, Non Tender, ileal conduit in place draining clear yellow urine
Musculoskeletal: Mild lower extremity edema, no deformity
Skin: Warm and dry, seborrheic papules scattered throughout body worst on legs
: NO Simmons
Neuro: Awake, Alert, Nonfocal/grossly intact
Psych: Calm and Intact Judgment/Insight
Discharge Plan
-
Patient Disposition: Home (Routine Discharge)
Discharge Diagnosis/Procedures: Pulmonary embolism
Activity Restrictions/Additional Instructions:
You were admitted for shortness of breath and right-sided chest pain. You were found to have blood clots in your lungs which is likely the cause of your right sided chest pain. You also had a blood clot in your right leg. You were started on
anticoagulation with IV heparin which has now been transition to Eliquis. You will take Eliquis 10 mg twice daily for 1 week then switch to 5 mg twice a day for at least 6 months. You will need to follow-up with your primary care physician and
with the sole dyer after hospital discharge.
UROSTOMY CARE
Change q 3-4 days or if leakage.
clean with warm water, pat dry then apply ring of stoma paste and convex one piece or 2 piece provided.
If either of them work can get when ordering next supply.
Earnestine Cera Plus one piece convex appliance # [id number]
or 2 piece- Earnestine 2 1/4' convex wafer # [id number] with 2 1/4' Urostomy pouch.
Skin care: Mineral oil to dry patches and itchy skin daily
Referrals:
Levi Ross MD [Family Provider, Internal Medicine]
Jack Whittaker MD [Active, Pulmonary Medicine] - in four to six weeks
Referral Note: Pulmonary embolism/COPD.
Prescriptions:
New
Eliquis 5 mg tablet
5 mg PO BID Qty: 70 0RF
Rx Instructions:
take 10 mg BID x7 days, then 5 mg BID thereafter
Continued
oxycodone [OxyContin] 10 MG tablet,oral only,ext.rel.12 hr
10 mg PO Q12H
oxycodone 5 MG tablet
10 mg PO Q8HPRN PRN (Reason: PAIN)
albuterol sulfate 90 mcg/actuation HFA aerosol inhaler
2 puff inhalation Q4H PRN (Reason: shortness of breath or wheezing) Qty: 8.5 0RF
Discharge Orders:
Discharge Patient (As Directed); Ordered 07/12/25
Ordered By: Armin Rivero
Discharge Date and Time
Print Language: GERMAN
--- NOTE | 2025-07-12 12:43 | CM ---
Addendum entered by Alysia Marina 07/12/25 12:55:
Pt stated his brother is picking him up; destination unknown
Original Note:
Pt is discharged. Pt is living in his truck and states he will continue to do so. Acknowledges that he has been given resources by the previous CM.
Home O2 evaluation ordered and completed. Dr. Aldana made aware of pt's circumstances via TT.
== END 2025-07-12 13:23 | disposition home or self-care (01) | DRG 175 ==
LOC: 4 EAST ACU 03:53
PROVIDERS: Emergency Medicine; ADMITTING PHYSICIAN Hospitalist; ATTENDING PHYSICIAN Internal Medicine; EMERGENCY PHYSICIAN Emergency Medicine; FAMILY PHYSICIAN Internal Medicine; OTHER PHYSICIAN Internal Medicine Critical Care Medicine
DX: I26.99 Other pulmonary embolism without acute cor pulmonale (principal); J96.01 Acute respiratory failure with hypoxia; I82.451 Acute embolism and thrombosis of right peroneal vein; I82.411 Acute embolism and thrombosis of right femoral vein; Z59.02 Unsheltered homelessness; I10 Essential (primary) hypertension; J44.9 Chronic obstructive pulmonary disease, unspecified; C67.9 Malignant neoplasm of bladder, unspecified; L21.9 Seborrheic dermatitis, unspecified; M54.9 Dorsalgia, unspecified; Q82.8 Other specified congenital malformations of skin; G89.29 Other chronic pain; Z79.01 Long term (current) use of anticoagulants; Z87.891 Personal history of nicotine dependence; Z90.6 Acquired absence of other parts of urinary tract; Z79.899 Other long term (current) drug therapy; Z90.79 Acquired absence of other genital organ(s); Z79.891 Long term (current) use of opiate analgesic
CPT/HCPCS: 71275; 74177; 80048; 80053; 81003; 81015; 83690; 84484; 85025; 85027; 85730; 87086; 93005; 93306; 93970; 94640; 96374; 96375; 96376; 99285; Q9967

== ENCOUNTER 2025-07-27 15:30 | Inpatient (IN) | payer OTHER, SELFPAY ==
[2025-07-27 12:33] VITALS: BP 127/74
[2025-07-27 13:16] LABS: Hematocrit 44.1 % (39.0-52.0); Hemoglobin 14.9 g/dL (13.0-18.0); Mean Corp Hgb Conc. 33.8 g/dL (33.0-37.0); Mean Corpuscular Volume 91.5 fL (80.0-94.0); Nucleated Red Blood Cells % 0 % (-); Platelet Count 246 10^3/uL (130-400); Red Cell Dist. Width 13.1 % (11.5-14.5)
[2025-07-27 13:26] LABS: APTT 37.6 Sec (23.4-35.0)
[2025-07-27 13:31] LABS: ALT (SGPT) 52 U/L (0-50); AST (SGOT) 57 U/L (17-59); Albumin 3.6 g/dl (3.5-5.0); Alkaline Phosphatase 148 U/L (38-126); Blood Urea Nitrogen 11 mg/dl (9-20); Calcium 8.6 mg/dl (8.4-10.2); Carbon Dioxide 25 mmol/L (22-30); Chloride 100 mmol/L (98-107); Glucose 109 mg/dl (70-99); Lipase 67 U/L (23-300); Potassium 3.7 mmol/L (3.5-5.1); Sodium 135 mmol/L (135-145); Total Protein 7.8 g/dl (6.3-8.2); eGFR > 60.00
[2025-07-27 13:43] LABS: Troponin I < 0.012 ng/ml
--- NOTE | 2025-07-27 14:22 | ED.GENMED ---
History of Present Illness
<Destini Babin PA-C - Last Filed: 07/27/25 15:14>
General
Chief Complaint: Breathing Problem
Time Seen by Provider: 07/27/25 14:05
History of Present Illness
History of Present Illness:
Avelino is a 70-year-old male with past medical history of recent PE on Eliquis, COPD, bladder cancer status post resection and urostomy creation who is currently living in his truck and presenting complaining of blood in his sputum this morning.
Reports shortness of breath with activity that is no worse than baseline. Intermittent right sided chest pain with deep inspiration consistent with prior pain from PE. This has been unchanged since discharge from the hospital.
<Forrest Otto MD - Last Filed: 07/27/25 14:59>
General
Source: patient and records
Exam Limitations: none
Nursing documentation reviewed up to this point in time: agreed with
Past History
<Destini Babin PA-C - Last Filed: 07/27/25 15:14>
Past History
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
polyps, right hydronephrosis due to bladder cancer, impaired vision); Negative IDDM or NIDDM
ED Past Surgical History: Orthopedic (Right foot repair), Urological and Other (Bladder removal with urostomy 2001); Negative Appendectomy
Social History
Tobacco: Former smoker (Quit smoking 2001)
Alcohol: None
Drug: None
Personal:
Living: homeless (Had been renting a room in a house but recently forced to vacate. He is currently homeless since June 2025)
Employment: Other
Family History
Family History: Hypertension and Other (Chronic dry skin condition he inherited from his mother-Diareze disease)
Phy Exam
<Destini Babin PA-C - Last Filed: 07/27/25 15:14>
General Physical Exam
General Presentation: well appearing and no apparent distress
General Skin: warm and dry
General Habitus: normal
General Mental: alert
General Hydration: appears well hydrated
ENT Exam
ENT Exam: EOMI, pharynx normal, neck supple and normocephalic
Eye Exam
Eye Exam: PERRL, cornea clear and conjunctiva normal
Cardiovascular Exam
Cardiovascular Exam: regular rate/rhythm, no edema, no murmur and normal peripheral pulses
Pulmonary Exam
Pulmonary Exam: lungs clear, no respiratory distress, no rales, no crackles, no rhonchi, no stridor, no wheezing and no cough
Gastrointestinal Exam
Gastrointestinal Exam: normal bowel sounds, non tender, soft, no organomegaly, no pulsatile mass and non distended
Genitourinary Exam Male
Exam Male: other (Urostomy )
Neurological Exam
Neurological Exam: alert, oriented x3, no motor deficits and speech normal
Musculoskeletal Exam
Musculoskeletal Exam: full ROM and no edema
Skin Exam
Skin Exam: normal color, warm/dry, no rash and no petechia
Psychiatric Exam
Psychiatric Exam: normal mood/affect
Scores
<Destini Babin PA-C - Last Filed: 07/27/25 15:14>
Heart Failure Risk
Heart Failure Risk Score: Not Applicable
Course
<Destini Babin PA-C - Last Filed: 07/27/25 15:14>
Orders/Labs/Results
Orders:
Orders
07/27/25 12:22
Electrocardiogram (*1) Urgent
Reason for Study: Chest Pain
EKG- Treatment ONCE
07/27/25 12:38
CR Chest - 2 Views Urgent
Comment:
Reason For Exam: cough
07/27/25 12:53
Comprehensive Metabolic Panel Urgent
Lipase Urgent
PTT Urgent
07/27/25 12:54
Type And Crossmatch [Type+Screen] Urgent
Complete Blood Count/With Diff Urgent
Troponin I Urgent
07/27/25 14:27
Case Management Consult ONCE
Case Management Consult: Discharge Planning
07/27/25 14:45
COVID-19 Antigen Urgent
Source: Nasal Swab
Influenza A+B Rapid Molecular Urgent
MARGARITA Source: Nasal Swab
Specimen Description:
07/27/25 14:49
Azithromycin 500 mg/250 ml [Zithromax Infusion] 500 mg in 250 ml IV NOW
CefTRIAXone [Rocephin] 1,000 mg IV NOW STA
07/27/25 15:07
Admit/Transfer Patient As Directed
Co-Sign Provider:
Level of Care: Inpatient admission
Assign to:: Medical/Surgical
Physician / Group: jameson
Diagnosis: pneumonia
Reason for Hospitalization: pneumonia
Expected length of stay greater than two midnights?: Yes
ELOS- Estimated Length of Stay in days: 3
I certify the patient meets the requirements for IP care: Yes
Code Status As Directed
Resuscitation Status: Full Code
PRN Pain Medication Management As Directed
May give lesser potent ordered pain med per pt: Yes
preference::
Protocol:: Medication orders for pain may be administered in a
manner that supports deferring to patient preference
when the pt is:
- Requesting an ordered lesser potent pain medication.
Least to most potent pain medications are defined
as: acetaminophen < NSAID < tramadol < opioids
(morphine, oxycodone, hydromorphone).
- Requesting a lesser dose of the same medication IF
ORDERED.
- Requesting a less intrusive route of administration
if both routes are prescribed by the provider (PO <
IV).
Abnormal Lab Results
07/27/25 07/27/25
12:53 12:54
MPV 10.8 H fL
(7.4-10.4)
Absolute Neuts (auto) 7.7 H 10^3/uL
(1.4-6.5)
Absolute Lymphs (auto) 0.5 L 10^3/uL
(1.2-3.4)
Neutrophils % 87.1 H %
(42.2-75.2)
Lymphocytes % 5.2 L %
(20.5-51.1)
APTT 37.6 H Sec
(23.4-35.0)
Glucose 109 H mg/dl
(70-99)
Total Bilirubin 1.4 H mg/dl
(0.2-1.3)
ALT 52 H U/L
(0-50)
Alkaline Phosphatase 148 H U/L
(38-126)
07/27/25 12:54
07/27/25 12:53
Vital Signs
Initial and Last Documented VS:
Initial Vital Signs
Temp Pulse Resp BP Pulse Ox
36.8 C 89 20 127/74 97
07/27/25 12:33 07/27/25 12:33 07/27/25 12:33 07/27/25 12:33 07/27/25 12:33
Last Documented Vital Signs
Temp Pulse Resp BP Pulse Ox
36.8 C 89 20 127/74 97
07/27/25 12:33 07/27/25 12:33 07/27/25 12:33 07/27/25 12:33 07/27/25 14:26
<Forrest Otto MD - Last Filed: 07/27/25 14:59>
Orders/Labs/Results
Orders:
Orders
07/27/25 12:22
Electrocardiogram (*1) Urgent
Reason for Study: Chest Pain
EKG- Treatment ONCE
07/27/25 12:38
CR Chest - 2 Views Urgent
Comment:
Reason For Exam: cough
07/27/25 12:53
Comprehensive Metabolic Panel Urgent
Lipase Urgent
PTT Urgent
07/27/25 12:54
Type And Crossmatch [Type+Screen] Urgent
Complete Blood Count/With Diff Urgent
Troponin I Urgent
07/27/25 14:27
Case Management Consult ONCE
Case Management Consult: Discharge Planning
07/27/25 14:45
COVID-19 Antigen Urgent
Source: Nasal Swab
Influenza A+B Rapid Molecular Urgent
MARGARITA Source: Nasal Swab
Specimen Description:
07/27/25 14:49
Azithromycin 500 mg/250 ml [Zithromax Infusion] 500 mg in 250 ml IV NOW
CefTRIAXone [Rocephin] 1,000 mg IV NOW STA
07/27/25 15:07
Admit/Transfer Patient As Directed
Co-Sign Provider:
Level of Care: Inpatient admission
Assign to:: Medical/Surgical
Physician / Group: jameson
Diagnosis: pneumonia
Reason for Hospitalization: pneumonia
Expected length of stay greater than two midnights?: Yes
ELOS- Estimated Length of Stay in days: 3
I certify the patient meets the requirements for IP care: Yes
Code Status As Directed
Resuscitation Status: Full Code
PRN Pain Medication Management As Directed
May give lesser potent ordered pain med per pt: Yes
preference::
Protocol:: Medication orders for pain may be administered in a
manner that supports deferring to patient preference
when the pt is:
- Requesting an ordered lesser potent pain medication.
Least to most potent pain medications are defined
as: acetaminophen < NSAID < tramadol < opioids
(morphine, oxycodone, hydromorphone).
- Requesting a lesser dose of the same medication IF
ORDERED.
- Requesting a less intrusive route of administration
if both routes are prescribed by the provider (PO <
IV).
Abnormal Lab Results
07/27/25 07/27/25
12:53 12:54
MPV 10.8 H fL
(7.4-10.4)
Absolute Neuts (auto) 7.7 H 10^3/uL
(1.4-6.5)
Absolute Lymphs (auto) 0.5 L 10^3/uL
(1.2-3.4)
Neutrophils % 87.1 H %
(42.2-75.2)
Lymphocytes % 5.2 L %
(20.5-51.1)
APTT 37.6 H Sec
(23.4-35.0)
Glucose 109 H mg/dl
(70-99)
Total Bilirubin 1.4 H mg/dl
(0.2-1.3)
ALT 52 H U/L
(0-50)
Alkaline Phosphatase 148 H U/L
(38-126)
07/27/25 12:54
07/27/25 12:53
Vital Signs
Initial and Last Documented VS:
Initial Vital Signs
Temp Pulse Resp BP Pulse Ox
36.8 C 89 20 127/74 97
07/27/25 12:33 07/27/25 12:33 07/27/25 12:33 07/27/25 12:07/27/25 12:33
Last Documented Vital Signs
Temp Pulse Resp BP Pulse Ox
36.8 C 89 20 127/74 97
07/27/25 12:33 07/27/25 12:33 07/27/25 12:33 07/27/25 12:33 07/27/25 14:26
<Destini Babin PA-C - Last Filed: 07/27/25 15:14>
MDM/Problems Addressed
Differential Diagnosis Includes:
CBC shows no leukocytosis. Patient is mentating adequate saturations on room air. Chest x-ray obtained and shows concern for right upper lobe pneumonia. This to be consistent with patient's symptoms of worsening cough and intermittent shortness
of breath. Ceftriaxone and azithromycin ordered. Given patient's current social situation of living in his car will have patient admitted to the hospitalist for pneumonia treatment. Case management consult for assistance with his current living
situation.
<Destini Babin PA-C - Last Filed: 07/27/25 15:14>
*Pulse Oximetry
SaO2: 97
Oxygen Mode of Delivery: Room air
Patient hypoxic: no
*Critical Care Note
Total Time (30-74mins, 75-104mins- exclusive of procedures): Not Applicable
ED Attending Note
<Destini Babin PA-C - Last Filed: 07/27/25 15:14>
-
Portions of this chart may have been created with voice recognition software.� Occasional wrong word or��sound alike� substitutions may have occurred due to the inherent limitations of voice recognition software.
<Forrest Otto MD - Last Filed: 07/27/25 14:59>
ED Attending Note
Patient seen and examined by attending physician: Yes
ED Attending Note:
I have seen and evaluated the patient with a [id number] encounter. I have spoken to the advance practicer provider and involved in the medical history, the physical exam, medical decision making.
Evaluation and management service: agree unless noted differently below.
Results interpretation: agree unless noted differently below.
Focused HPI: 70-year-old male with a past medical history of bladder cancer status post cystectomy and ileal conduit, COPD, pulmonary embolism on Eliquis who presents to the ER for evaluation of cough and shortness of breath. Patient was admitted
earlier this month with chest pain found to have bilateral pulmonary emboli. He was discharged on Eliquis. He says he has been compliant. He says chest pain improved mildly but never resolved after hospitalization and over the past couple days he
has developed hacking cough which prompted visit to the ER. He does have some associated shortness of breath. Has not noticed any swelling or pain in the legs. No fever or chills. Denies other complaints.
Physical exam: Awake and alert, nontoxic. Vital signs are normal�no tachypnea or hypoxia. He has faint rales right midlung, no focal wheezing, hacking cough on deep inspiration.
Medical Decision Makin-year-old male with recent admission for PE on Eliquis and reportedly compliant presents with cough and shortness of breath. Vitals and exam as above. Labs here were essentially unremarkable but chest x-ray concerning
for pneumonia. He is hemodynamically stable but unfortunately also has social history of being homeless living in his car, will plan to admit at least initially on IV antibiotics and have case reviewer involved as well on disposition to ensure
antibiotics available to him.
Discharge Plan
Departure
Patient Disposition: Admit
Date of Disposition: 07/27/25
Time of Disposition: 15:10
Presentation/result/management discussed w/ accepting MD/DO: Hospitalist
Discharge Problem:
Homelessness, Community acquired pneumonia, Cough, History of pulmonary embolism
Prescriptions:
No Action
oxycodone 5 MG tablet
10 mg PO Q6HPRN PRN (Reason: severe pain)
Rx Instructions:
pt states he takes every 8 hours when he has it - MKO
albuterol sulfate 90 mcg/actuation HFA aerosol inhaler
2 puff inhalation Q4H PRN (Reason: shortness of breath or wheezing) Qty: 8.5 0RF
Eliquis 5 mg tablet
5 mg PO BID Qty: 70 0RF
Trelegy Ellipta 100-62.5-25 mcg Blister With Device
1 inh INHALATION DAILY
Referrals:
Levi Ross MD [Family Provider, Internal Medicine]
Interventions
Interventions:
*Risk Screen - Suicide (C-SSRS) Last Done: 07/27/25 12:33
Discharge Date and Time
Print Language: URDU
--- NOTE | 2025-07-27 14:54 | HPS.HSE ---
Family Physician
-
Family Physician:
Chief Complaint
-
Cough
History of Present Illness
70-year-old male with past medical history of recent PE on Eliquis, COPD, bladder cancer status post resection and urostomy creation who is currently living in his truck and presenting complaining of blood in his sputum since last night.patient
complained of cough for past one week. he was having right sided chest pain. she complained of sob with activity. denied OH, dizzy or syncope. he was sweating last week. he complained of weakness. denied abdominal pain,n,v,d. denied dysuria or
hematuria.
concern for pneumonia. giving ceftriaxone and zithro. admitting for further management.
Medical History
Past Medical History
Past Medical History: Reports Other
Additional Past Medical History:
Bladder cancer, COPD, seizures, chronic back pain, diareze disease, diverticulitis, polyps, right hydronephrosis, impaired revision
Past Surgical History: Reports Other
Additional Past Surgical History:
Cecotomy, urostomy, right foot repair, bladder removal
Social History
Tobacco: Non-smoker
Alcohol: None
Drug: None
Living: Homeless
Family History
Family History: Not pertinent
Allergies / Home Medications
Allergies reflects when Allergies were last updated in [facility].
Home Medications with original date entered in [facility]
Allergy/Medication List:
Allergies
Allergy/AdvReac Type Severity Reaction Status Date / Time
acetaminophen AdvReac Mild headache Verified 07/27/25 12:22
Home Medications
oxycodone 5 mg tablet 10 mg PO Q6HPRN PRN severe pain 04/15/16
albuterol sulfate 90 mcg/actuation aerosol inhaler 2 puff inhalation Q4H PRN shortness of breath or wheezing #8.5 grams 09/08/24
apixaban 5 mg tablet (Eliquis) 5 mg PO BID #70 tabs 07/11/25
fluticasone fur. 100 mcg-umeclid 62.5 mcg-vilant 25 mcg inhalat.powder (Trelegy Ellipta) 1 inh inhalation DAILY 07/27/25
Review of Systems
-
Constitutional: Reports Night Sweats
EENT: Reports No Symptoms
Respiratory: Reports Cough and Trouble Breathing
Cardiac: Reports Chest Pain
Abdomen/GI: Reports No Symptoms
: Reports No Symptoms
Musculoskeletal: Reports No Symptoms
Skin: Reports No Symptoms
Neurological: Reports Weakness
Endocrine: Reports No Symptoms
Hematologic/Lymphatic: Reports No Symptoms
Psych: Reports No Symptoms
Physical Exam
Vital Signs
Vital Signs
Temp Pulse Resp BP Pulse Ox
98.3 F 89 20 127/74 97
07/27/25 12:33 07/27/25 12:33 07/27/25 12:33 07/27/25 12:33 07/27/25 14:26
Physical Exam
General: Well Developed, Well Nourished and No Apparent Distress
HEENT: NormoCephalic, Moist mucous membranes and Atraumatic
Respiratory: Clear
Cardiac: S1/S2 and Regular Rhythm; No Murmur or Rub
GI: Soft, Non Tender, Non Distended and Normal Bowel Sounds; No Organomegaly
Rectal: Deferred by Provider
Musculoskeletal: No Clubbing, No Cyanosis and No Edema
Skin: No Rash
Neuro: AO x 3 and Nonfocal/grossly intact
Psych: Calm
Laboratory Results
-
07/27/25 12:54
07/27/25 12:53
Laboratory Results
APTT 37.6 Sec (23.4-35.0) H 07/27/25 12:53
Total Bilirubin 1.4 mg/dl (0.2-1.3) H 07/27/25 12:53
AST 57 U/L (17-59) 07/27/25 12:53
ALT 52 U/L (0-50) H 07/27/25 12:53
Alkaline Phosphatase 148 U/L (38-126) H 07/27/25 12:53
Troponin I < 0.012 ng/ml 07/27/25 12:54
Lipase 67 U/L (23-300) 07/27/25 12:53
Data Reviewed
-
Diagnostic Radiology: Report Reviewed by me
Lab Data: Labs Reviewed by me
Impression/Plan
-
# Cough secondary to pneumonia
- Ceftriaxone azithromycin continued
- Mucinex for cough
- Tylenol as needed for fever or pain
- COVID pending, flu pending
- Chest x-ray with impression of here is new airspace disease in the right upper lobe. Given cough this is likely pneumonia.Overall findings are consistent with changes of COPD, stable from prior study
# History of PE
-on eliquis
#Back pain:
- Continue home oxycodone
#Darier's disease:
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
#COPD:
- Currently without exacerbation
- Albuterol and breo continued
#DVT prophylaxis: eliquis
#CODE STATUS: Full code
[2025-07-27 15:06] LABS: COVID-19 Antigen Negative (Negative)
--- NOTE | 2025-07-27 15:09 | W.PN.UPDATE ---
Update Note
Progress Note Update
This is an addendum to H&P written by BRIDGE MAINTAINER Roxana Hernandez
I saw and examined the patient.
The BRIDGE MAINTAINER's note was reviewed and I agree with the note.
Comment:
Mr. Avelino Shipman is a 70 yo man with hx bladder cancer s/p cystectomy and ileal conduit, COPD, recent admission 07/11-07/12 for PE discharged on Eliquis presents with weakness over the past week and mild hemoptysis yesterday evening.
Triage VS: T 36.8, P 89, RR 20, BP 127/74, Spo2 97%
On exam patient is in no distress, conversant. No wheezing, no LE swelling.
LABS: WBC 8.9, Hg 14.9, PLT 246, Na 135, K+ 3.7, Cr 1.1, Glucose 109, T. Bili 1.4, AST 57, ALT 52, Trop < 0.012
CXR
IMPRESSION:
There is new airspace disease in the right upper lobe. Given cough this is likely pneumonia.
Overall findings are consistent with changes of COPD, stable from prior study
Right Upper Lobe Community Acquired Pneumonia
-continue Cef/Azithro
-mucinex, acapella
Hx COPD
-BUILDING COORDINATOR Trelegy
-duonebs PRN
Recent diagnosis of PE
-continue BUILDING COORDINATOR Eliquis given only minimal hemoptysis reported and recent PE
Hx Bladder Ca s/p Cystectomy and Ileal Conduit - 25 years ago
DVT PPx: BUILDING COORDINATOR Eliquis
FULL CODE
[2025-07-27] MEDS: ZITHROMAX INFUSION 250 IV (15:54)
[2025-07-27] MEDS: ROCEPHIN 1000 MG IV (15:54)
--- NOTE | 2025-07-27 16:44 | EDCM ---
Addendum entered by Sandra George 07/27/25 16:48:
Pt was given housing resources prior to last discharge on 07/12. Given info for [facility]. Pt still has information.
Original Note:
Received consult, reviewed chart and met with pt bedside in ED. Pt has been homeless since June, previously rented a room.
He has been staying in his truck but for the past 3 nights he was able to stay with a friend, is hoping to return there at discharge.
Independent in ADLs, personal care and ambulation, no assistive devices.
PMH includes PE, COPD, Bladder cancer, Seizures, chronic back pain.
Confirms insurance and prescription coverage.
PCP: Levi Ross
Pharmacy: [facility]
CM will continue to follow for all discharge planning needs.
[2025-07-27] MEDS: NSS 500 IV (17:52)
[2025-07-27 18:30] VITALS: BP 130/72
[2025-07-27] MEDS: SYMBICORT 80/4.5 MCG INHALER INH (20:12)
[2025-07-27] MEDS: ELIQUIS 5 MG PO (20:49)
[2025-07-27] MEDS: MUCINEX 600 MG PO (20:49)
[2025-07-27 23:22] VITALS: BP 116/66
[2025-07-27] MEDS: ROXICODONE 10 MG PO (23:26)
[2025-07-28 06:00] VITALS: BMI 24.6
[2025-07-28 07:14] VITALS: BP 115/72
[2025-07-28] MEDS: MUCINEX 600 MG PO ×2 (07:50→20:32)
[2025-07-28] MEDS: ELIQUIS 5 MG PO ×2 (07:50→20:32)
[2025-07-28] MEDS: ROXICODONE 10 MG PO ×2 (07:54→20:35)
[2025-07-28] MEDS: SYMBICORT 80/4.5 MCG INHALER 2 PUFF INH ×2 (08:47→19:38)
[2025-07-28] MEDS: SPIRIVA RESPIMAT 2.5 MCG 2 PUFF INH (08:48)
[2025-07-28 08:52] LABS: Hematocrit 38.6 % (39.0-52.0); Hemoglobin 13.2 g/dL (13.0-18.0); Mean Corp Hgb Conc. 34.2 g/dL (33.0-37.0); Mean Corpuscular Volume 90.8 fL (80.0-94.0); Platelet Count 220 10^3/uL (130-400); Red Cell Dist. Width 13.2 % (11.5-14.5)
[2025-07-28 09:22] LABS: ALT (SGPT) 49 U/L (0-50); AST (SGOT) 42 U/L (17-59); Albumin 2.9 g/dl (3.5-5.0); Alkaline Phosphatase 137 U/L (38-126); Blood Urea Nitrogen 8 mg/dl (9-20); Calcium 8.0 mg/dl (8.4-10.2); Carbon Dioxide 24 mmol/L (22-30); Chloride 102 mmol/L (98-107); Estimated Creatinine Clearance 70 ml/min; Glucose 96 mg/dl (70-99); Sodium 134 mmol/L (135-145); Total Protein 6.3 g/dl (6.3-8.2); eGFR > 60.00
[2025-07-28 09:27] LABS: Potassium 3.9 mmol/L (3.5-5.1)
--- NOTE | 2025-07-28 10:06 | WOUNDNOTE ---
WO RN Note: Spoke with patient who stated he is independent in his ostomy care and he has his own ostomy supplies. He stated his rash is r/t Darier's disease and also possibly resolving rash from erythromycin from weeks prior. Discussed with RN
Alanis re: no [facility] RN consult indicated; this type of rash is not under this racebook writer's scope to assess and treat.
[2025-07-28 11:00] VITALS: BP 101/64; PULSE 91; O2SAT 92
[2025-07-28 11:30] VITALS: BP 101/64; PULSE 91; O2SAT 92
--- NOTE | 2025-07-28 14:55 | CM ---
CM reviewed chart, patient seen bedside.
Patient likely for d/c tomorrow, reports he has all of the housing resources.
Patient reports he has a lady friend to potentially stay with, verses d/c to his truck.
Patient aware of food pantries in area.
Denies needs from CM.
Plan; d/c to truck verses staying with friend
[2025-07-28 15:00] VITALS: BP 103/72
--- NOTE | 2025-07-28 15:02 | PTCARENOTE ---
per WOC, cancel consult. pt does not need assistance/supplies and chronic rash is not reason for WOC consult
[2025-07-28] MEDS: STERILE WATER FOR INJECTION 10 ML IV (15:19)
[2025-07-28] MEDS: ROCEPHIN 1000 MG IV (15:19)
[2025-07-28] MEDS: ZITHROMAX INFUSION 250 IV (15:26)
[2025-07-28 17:18] VITALS: BP 135/78
--- NOTE | 2025-07-28 19:37 | W.PN.HOSP.TC ---
Addendum entered and electronically signed by Dylan Tilley MD 07/28/25 22:03:
Attending Addendum-I saw and evaluated the patient. I reviewed the resident�s note and agree with findings and plan as documented in the resident�s note. Sub: complains of cough and continued SOB. Denies fevers chills. Full 12 point ROS reviewed and
negative except as documented Exam: Vitals reviewed in chart GEN-NAD heart RRR lungs rhonchi RUL decreased BS b/l LL abd soft NT ND urostomy present LE no edema Skin diffuse seborrheic rash
Plan:
# CAP
- cont Ceftriaxone/Azithromycin day # 2
- Mucinex for cough
- Tylenol as needed for fever or pain
- COVID flu-neg
# History of PE
-on eliquis
#Back pain:
- Continue home oxycodone
#Darier's disease:
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
- hydrocort cream prn
#COPD:
- Currently without exacerbation
- Albuterol and breo continued
# Bladder CA s/p urostomy
DVT prophylaxis: eliquis
CODE STATUS: Full code
Dispo: DC in am
ACP
Patient consented to discuss, was alone, time spent explanation of advance directives, changes in health status, patient�s health care wishes if the patient becomes unable to make health decisions, goals of care, code status, and prognosis- 16
minutes
Time spent coordinating care, review of plan of care with resident, personally reviewed previous records in EMR, med rec, labs, radiology, d/w nursing, family total time documented is exclusive of any additional time listed that was spent in advance
care planning discussion -�51 minutes
Original Note:
Today's Communication/Plan
-
Plan to discharge the patient tomorrow on oral antibiosis if continue improving
discussed with case filler plan to discharge tomorrow , pt has intermediate
Assessment / Plan
Assessment / Plan
70-year-old male with past medical history of recent PE on Eliquis, COPD, bladder cancer status post resection and urostomy creation who is currently living in his truck and presenting complaining of blood in his sputum since last night.patient
complained of cough for past one week. he was having right sided chest pain. she complained of sob with activity. denied OH, dizzy or syncope. he was sweating last week. he complained of weakness. denied abdominal pain,n,v,d. denied dysuria or
hematuria.
concern for pneumonia. giving ceftriaxone and zithro. admitting for further management.
# Cough secondary to pneumonia
- Ceftriaxone azithromycin continued
- Mucinex for cough
- Tylenol as needed for fever or pain
- COVID pending, flu pending
- Chest x-ray with impression of here is new airspace disease in the right upper lobe. Given cough this is likely pneumonia.Overall findings are consistent with changes of COPD, stable from prior study
# History of PE
-on eliquis
#Back pain:
- Continue home oxycodone
#Darier's disease:
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
#COPD:
- Currently without exacerbation
- Albuterol and breo continued
#DVT prophylaxis: eliquis
#CODE STATUS: Full code
Anticipated Discharge: Within 24 hours
Subjective/Interval History
-
Date of Service: July 28, 2025
his cough and shortness have improved since yesterday. denied chest pain, palpitation.
Objective Data
-
Labs:
Laboratory Results
07/28/25
07:45
WBC 7.8
Hgb 13.2
Hct 38.6 L
Plt Count 220
Sodium 134 L
Potassium 3.9
Chloride 102
Carbon Dioxide 24
BUN 8 L
Creatinine 1.1
Glucose 96
Calcium 8.0 L
Total Bilirubin 1.3
AST 42
ALT 49
Alkaline Phosphatase 137 H
Vital Signs:
Vital Signs
Temp Pulse Resp BP Pulse Ox
99.0 F 98 18 135/78 94
07/28/25 17:18 07/28/25 17:18 07/28/25 17:18 07/28/25 17:18 07/28/25 17:18
I&O
07/27/25 07/28/25 07/29/25
06:59 06:59 06:59
Intake Total 360 / 360
Balance 360 / 360
Review of Systems
-
History Source: Patient
Cardiac: Reports No Symptoms
Abdomen/GI: Reports No Symptoms
Genitourinary: Reports Other (ostomy )
Musculoskeletal: Reports Other (ingrowing toe nail bilateral )
Skin: Reports Rash (erythematous and yellowish plaques on his chest and abd and back , hx of Darier skin disease )
Physical Exam
-
General: Well Developed, Well Nourished and No Apparent Distress
HEENT: Normocephalic and Atraumatic
Respiratory: Clear to Auscultation
Cardiac: Regular Rhythm and S1/S2
GI: Soft, Nontender and Nondistended
Genito-urinary: Other (ostomy )
Musculoskeletal: No Edema and Other (ingrowing big toe nails bilateral )
Skin: Warm, Dry and Rash (erythematous rash with yellowish plaques in his chest , abd, back )
Neuro: Awake, Alert, Oriented and AO x 3
Psych: Calm
[2025-07-28 23:00] VITALS: BP 102/61
[2025-07-29] MEDS: SPIRIVA RESPIMAT 2.5 MCG 2 PUFF INH (07:18)
[2025-07-29] MEDS: SYMBICORT 80/4.5 MCG INHALER 2 PUFF INH (07:19)
[2025-07-29] MEDS: ELIQUIS 5 MG PO (07:27)
[2025-07-29] MEDS: MUCINEX 600 MG PO (07:27)
[2025-07-29] MEDS: ROXICODONE 10 MG PO ×2 (08:17→14:29)
[2025-07-29 08:30] LABS: Hematocrit 38.4 % (39.0-52.0); Hemoglobin 13.0 g/dL (13.0-18.0); Mean Corp Hgb Conc. 33.9 g/dL (33.0-37.0); Mean Corpuscular Volume 88.3 fL (80.0-94.0); Nucleated Red Blood Cells % 0 % (-); Platelet Count 226 10^3/uL (130-400); Red Cell Dist. Width 13.3 % (11.5-14.5)
[2025-07-29 08:39] VITALS: BP 98/61
--- NOTE | 2025-07-29 10:05 | W.PN.HOSP.TC ---
Addendum entered and electronically signed by Irena Richardson MD 07/29/25 15:33:
I saw and evaluated the patient independently. I reviewed and discussed the resident�s note and agree with findings and plan as documented by Dr. Julien.
GENERAL: well developed, well nourished, male in no apparent distress
HEENT: NC/AT--no O2 requirements
HEART: regular rate and rhythm, +S1, +S2
LUNGS : clear to auscultation bilaterally
ABDOM: soft, nontender, nondistended, + bowel sounds
EXT: no cyanosis, clubbing, or edema
NEUROLOGIC: grossly intact
SKIN: thickened, scaly areas all over body with small scablike lesions in places
Community Acquired Pneumonia--ceftriaxone and zithromax to Keflex at d/c to finish course of treatments--mucinex--no O2 requirements
Transaminitis--Unclear etiology--repeat on Thursday, results to PCP
History of PE-on eliquis
Back pain- Continue home oxycodone
Darier's disease-- Genetic skin condition has been causing seborrheic rash throughout his upper and lower extremities
COPD without exacerbation- Albuterol and breo continued
DVT proph-- eliquis
CODE STATUS--Full code
OK for d/c
Original Note:
Today's Communication/Plan
-
Patient symptoms improving
Discharged on Keflex 500 mg TID for 7 days and to do Liver function test on 07/31/2025
case specialist contacted for discharge plan and provided with the shelters/homes resources
Assessment / Plan
Assessment / Plan
70-year-old male with past medical history of recent PE on Eliquis, COPD, bladder cancer status post resection and urostomy creation who is currently living in his truck and presenting complaining of blood in his sputum since last night.patient
complained of cough for past one week. he was having right sided chest pain. she complained of sob with activity. denied OH, dizzy or syncope. he was sweating last week. he complained of weakness. denied abdominal pain,n,v,d. denied dysuria or
hematuria.
concern for pneumonia. giving ceftriaxone and azithromycin. admitting for further management.
# Cough secondary to pneumonia
- Ceftriaxone azithromycin continued and transitioned to Keflex 500mg TID for 7 days after discharge
- Mucinex for cough
- Tylenol as needed for fever or pain
- COVID neg, flu neg
- Chest x-ray with impression of here is new airspace disease in the right upper lobe. Given cough this is likely pneumonia.Overall findings are consistent with changes of COPD, stable from prior study
#Transaminitis
-Unclear etiology
-AST WNL
-ALT 52--49--60
-ALP 148--137--149
-repeat LFT after discharge on 07/31/2025
# History of PE
-on eliquis
#Back pain:
- Continue home oxycodone
#Darier's disease:
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
#COPD:
- Currently without exacerbation
- Albuterol and breo continued
#DVT prophylaxis: eliquis
#CODE STATUS: Full code
Anticipated Discharge: Today
Subjective/Interval History
-
Date of Service: July 29, 2025
No over night event. He still have cough but has been improving, with thick brown yellowish sputum. Has right chest pain when he cough. His SOB has been improved.
Objective Data
-
Labs:
Laboratory Results
07/29/25
06:46
WBC 10.2
Hgb 13.0
Hct 38.4 L
Plt Count 226
Sodium Pending
Potassium Pending
Chloride Pending
Carbon Dioxide Pending
BUN Pending
Creatinine Pending
Glucose Pending
Calcium Pending
Total Bilirubin Pending
AST Pending
ALT Pending
Alkaline Phosphatase Pending
Vital Signs:
Vital Signs
Temp Pulse Resp BP Pulse Ox
98.5 F 81 21 98/61 93
07/29/25 08:39 07/29/25 08:39 07/29/25 08:39 07/29/25 08:39 07/29/25 08:39
I&O
07/28/25 07/29/25 07/30/25
06:59 06:59 06:59
Intake Total 840 / 840
Output Total 705 / 705
Balance 135 / 135
Review of Systems
-
History Source: Patient
Respiratory: Reports Cough (with thick brown yellowish sputum )
Cardiac: Reports Chest Pain (when he coughs )
Abdomen/GI: Reports No Symptoms
Musculoskeletal: Reports Other (ingrowing toe nail bilateral )
Skin: Reports Rash (erythematous and yellowish plaques on his chest and abd and back , hx of Darier skin disease )
Physical Exam
-
General: Well Developed, Well Nourished and No Apparent Distress
Respiratory: Clear to Auscultation
Cardiac: Regular Rhythm and S1/S2
GI: Soft, Nontender and Nondistended
Musculoskeletal: No Cyanosis and No Edema
Neuro: Awake, Alert, Oriented and AO x 3
Psych: Calm
[2025-07-29 10:06] LABS: ALT (SGPT) 60 U/L (0-50); AST (SGOT) 52 U/L (17-59); Albumin 2.9 g/dl (3.5-5.0); Alkaline Phosphatase 149 U/L (38-126); Blood Urea Nitrogen 9 mg/dl (9-20); Calcium 8.1 mg/dl (8.4-10.2); Carbon Dioxide 21 mmol/L (22-30); Chloride 103 mmol/L (98-107); Estimated Creatinine Clearance 70 ml/min; Glucose 95 mg/dl (70-99); Potassium 3.8 mmol/L (3.5-5.1); Sodium 133 mmol/L (135-145); Total Protein 6.6 g/dl (6.3-8.2); eGFR > 60.00
--- NOTE | 2025-07-29 13:27 | CM ---
patient seen at bedside
discharge today
reports he has all of the housing resources, food resources
states will be staying in truck not with lady friend right now
IMM explained & signed. in chart
PLAN: discharge to truck
--- NOTE | 2025-07-29 16:51 | W.DCSUMMARY ---
Addendum entered and electronically signed by Irena Richardson MD 07/29/25 18:26:
Read, reviewed, and agree. See same day progress note for additional details. Time spent coordinating care, DC planning, review of DC plan of care with resident, transition of care, review of records in EMR, med rec, consults, notes, d/w
consultants, nursing, family, and CM = 32 minutes
Original Note:
Discharge Summary
Discharge Data
Date of Admission: 07/27/25
Date of Discharge: 07/29/25
-
Pending Results: Yes
Additional Pending Results:
The final results of sputum culture
Hospital Course
Discharging physician:
Irena Richardson
Disposition:
Lives in his truck
Primary Care physicians:
Levi Ross
Principal discharge Diagnosis:
Community Acquired Pneumonia
Elevated Liver Enzymes
Chronic Discharge Diagnosis:
Back pain, Pulmonary embolism -on Eliquis, Bladder cancer, COPD, seizures, chronic back pain, diaries skin disease, diverticulitis, polyps, right hydronephrosis, impaired revision.
Hospital Course:
70-year-old male who is currently living in his truck and presenting complaining of blood in his sputum the night before the admission. He complained of cough for past one week. he was having right sided chest pain when he coughs. she complained of
SOB with activity. denied OH, dizzy or syncope. he was sweating last week. he complained of weakness. denied abdominal pain,n,v,d. denied dysuria or hematuria. At the ER he was AFVSS. Chest X ray was done and showed new airspace disease in the right
upper lobe. Given cough this is likely pneumonia. He admitted for pneumonia and further management.
He received IV ceftriaxone and azithromycin, Mucinex, DuoNeb. He did not requited oxygen. He tested negative for COVID, Influenza A and B,Legionella Urinary Antigen, and Streptococcus pneumoniae. Sputum culture done on 07/27/2025 and preliminary
report showed no growth to date. His blood test was unremarkable other than elevated liver enzymes with unclear etiology AST WNL, ALT 52--49--60, ALP 148--137--149. recommended to repeat LFT on 07/31/2025 (he received the blood test script) and
follow up with his PCP within one week.
He remained stable on the day of the discharge and discharged on Keflex 500mg TID for seven days.
The skilled nursing case manager consulted and he received all the resources for housing and discharged in stable condition.
Important Imaging:
Chest Xray 07/27/2025
There is new airspace disease in the right upper lobe. Given cough this is likely pneumonia.
Overall findings are consistent with changes of COPD, stable from prior study
Discharge Plan
-
Patient Disposition: Home (Routine Discharge)
Discharge Diagnosis/Procedures: Community acquired pneumonia, Elevated liver enzymes
Diet: No restrictions
Activity: As tolerated
Driving Restrictions: As prior to admission
Bathing Restrictions: OK to Shower
Blood Work: Please do Liver function test on Thursday07/31/2025 and send the result to your PCP.
Instructions: Community-acquired pneumonia in adults
Referrals:
Levi Ross MD [Family Provider, Internal Medicine] - in less than 1 week
Additional Discharge Medication Instructions: Take Cephalexin 500 mg capsule each 8 hours for 7 days
Please follow up with your PCP in less than a week
Please do blood test on Thursday07/31/2025 for Liver Function Test.
Prescriptions:
New
cephalexin 500 mg capsule
500 mg PO TID 7 Days Qty: 21 0RF
Continued
oxycodone 5 MG tablet
10 mg PO Q6HPRN PRN (Reason: severe pain)
Rx Instructions:
pt states he takes every 8 hours when he has it - MKO
albuterol sulfate 90 mcg/actuation HFA aerosol inhaler
2 puff inhalation Q4H PRN (Reason: shortness of breath or wheezing) Qty: 8.5 0RF
Eliquis 5 mg tablet
5 mg PO BID Qty: 70 0RF
Trelegy Ellipta 100-62.5-25 mcg Blister With Device
1 inh INHALATION DAILY
Discharge Orders:
Discharge Patient (As Directed); Ordered 07/29/25
Ordered By: Queenie Julien
Discharge Date and Time
Discharge Date/Time: 07/29/25 15:41
Print Language: HUNGARIAN
== END 2025-07-29 15:41 | disposition home or self-care (01) | DRG 194 ==
LOC: 3 WEST ACU 15:30
PROVIDERS: Emergency Medicine; Registered Nurse; Specialist Research Data Abstracter/Coder; Surgery Trauma Surgery; ADMITTING PHYSICIAN Student in an Organized Health Care Education/Training Program; ATTENDING PHYSICIAN Internal Medicine; EMERGENCY PHYSICIAN Emergency Medicine; FAMILY PHYSICIAN Internal Medicine
DX: J18.9 Pneumonia, unspecified organism (principal); F11.20 Opioid dependence, uncomplicated; J44.0 Chronic obstructive pulmonary disease with (acute) lower respiratory infection; Z59.02 Unsheltered homelessness; R04.2 Hemoptysis; R74.01 Elevation of levels of liver transaminase levels; G89.29 Other chronic pain; M54.9 Dorsalgia, unspecified; Q82.8 Other specified congenital malformations of skin; Z60.2 Problems related to living alone; Z87.891 Personal history of nicotine dependence; Z85.51 Personal history of malignant neoplasm of bladder; Z86.711 Personal history of pulmonary embolism; Z79.51 Long term (current) use of inhaled steroids; Z79.01 Long term (current) use of anticoagulants; Z88.6 Allergy status to analgesic agent; Z11.52 Encounter for screening for COVID-19; Z90.6 Acquired absence of other parts of urinary tract; Z79.899 Other long term (current) drug therapy; Z87.19 Personal history of other diseases of the digestive system
CPT/HCPCS: 71046; 80053; 83690; 84484; 85025; 85027; 85730; 86850; 86900; 86901; 87070; 87205; 87449; 87502; 87811; 87899; 93005; 94640; 96361; 96374; 96375; 97162; 99285